=== PATIENT | female | born 1945 | race Caucasian/White ===

== ENCOUNTER 2017-07-31 16:16 | Emergency (ER) | payer OTHER ==
[~2017-07-31] VITALS: Ht 162.6 cm; Wt 78.6 kg
[~2017-07-31 16:16] MED LIST: CITA20TA4 PO; CLOP75 PO; Cyclobenzaprine Hcl PO; ECOT81TA2 PO; FERR1TAB20 PO; GLUCTAB PO; LORTA5 PO; METO50TA PO; NOVO7030P2 SQ; PERC5TAB12 PO; PROT40TA PO; ROBA750T3 PO; ROSU40 PO; THERM PO
[2017-07-31 16:23] VITALS: BP 217/90; PULSE 100; RESP 16; TEMP 97.8; O2SAT 96
[2017-07-31] MEDS ORDERED: cloNIDine HCL 0.2 MG TAB PO ONE (16:45)
--- NOTE | 2017-07-31 16:46 | PD ---
HPI Chief Complaint: Hypertension Time Seen by Provider: 16:36 Travel History International Travel<30 days: No Contact w/Intl Traveler<30days: No Traveled to known affect area: No History of Present Illness HPI The patient was seen and examined in the presence of the nurse. This patient complains of elevated blood pressures. She was at her primary physician's office and had high blood pressure and was sent here. She does not have any symptoms. She feels fine. She has no chest pain or headache or presyncopal symptoms. She took both of her blood pressure pills this morning. Current pressure is 193/82. Duration of hypertension is chronic. No alleviating factors. No exacerbating factors. She is compliant with her medication. Symptom severity is mild. PFSH Past Medical History Hx Anticoagulant Therapy: Yes (asa 81mg, plavix) Arthritis: No Asthma: No Autoimmune Disease: No Anxiety: No Depression: No Heart Rhythm Problems: No Cancer: No Cardiovascular Problems: Yes (htn on meds, triple bypass) High Cholesterol: No Chemotherapy: No Chest Pain: Yes Congestive Heart Failure: No COPD: Yes Cerebrovascular Accident: Yes (cva x 3) Diabetes: Yes (type 2) Diminished Hearing: No Endocrine: Yes GERD: No Genitourinary: Yes Hiatal Hernia: No Hypertension: Yes Immune Disorder: No Implanted Vascular Access Dvce: No Kidney Stones: No Musculoskeletal: No Neurologic: No Psychiatric: No Reproductive: No Respiratory: Yes (induce asthma ) Migraines: No Pneumonia: Yes Radiation Therapy: No Renal Failure: No Seizures: No Sickle Cell Disease: No Sleep Apnea: No Thyroid Disease: No Ulcer: No ?: Not Menopausal: Yes Past Surgical History Abdominal Surgery: Yes (Gall Bladder, ) AICD: No Appendectomy: Yes Arteriovenous Shunt: No Body Medical Devices: LAP BANDING Cardiac Surgery: Yes (CABG X 3) Cholecystectomy: Yes Ear Surgery: No Endocrine Surgery: No Eye Surgery: No Genitourinary Surgery: Yes (Renal Bypass not connected to DM) Gynecologic Surgery: No Insulin Pump: No Joint Replacement: No Neurologic Surgery: Yes Oral Surgery: No Pacemaker: No Thoracic Surgery: No Other Surgery: Yes (RENAL BYPASS) Social History Alcohol Use: Yes ("OCCASIONAL COCKTAIL") Tobacco Use: No (QUIT10/2013; USE E-CIG) Substance Use: No Allergies-Medications (Allergen,Severity, Reaction): Coded Allergies: atorvastatin (Verified Allergy, Unknown, 07/31/17) metformin (Verified Allergy, Unknown, 07/31/17) Reported Meds & Prescriptions Reported Meds & Active Scripts Active Reported Fish Oil ([place]-3 Fatty Acids) 340 Mg-1,000 Mg Cap 1,000 PO DAILY Lexapro (Escitalopram Oxalate) 20 Mg Tab 20 Mg PO DAILY Citalopram (Citalopram Hydrobromide) 20 Mg Tab 20 Mg PO DAILY Acarbose 100 Mg Tab 100 Mg PO DAILY Take with first bite of meal. Lantus Solostar Pen Inj (Insulin Glargine) 300 Unit/3 Ml Pen 100 Units SQ DAILY Vitamin D (Cholecalciferol) 2,000 Unit Cap 22 Cap PO DAILY Vitamin B-12 (Cyanocobalamin) 1,000 Mcg Subl 1,000 Mcg SL DAILY Aspirin 81 Mg Chew 81 Mg CHEW DAILY Invokamet (Canagliflozin-Metformin) 150-1,000 Mg Tab 1 Tab PO DAILY Take with meals. Avoid ethanol. Synthroid (Levothyroxine Sodium) 25 Mcg Tab 25 Mcg PO DAILY Amitriptyline (Amitriptyline HCl) 50 Mg Tab 50 Mg PO HS Metoprolol Tartrate 50 Mg Tab 50 Mg PO BID Plavix (Clopidogrel Bisulfate) 75 Mg Tab 75 Mg PO DAILY Cozaar (Losartan Potassium) 100 Mg Tab 100 Mg PO DAILY Magnesium Oxide 400 Mg Tab 400 Mg PO DAILY Review of Systems General / Constitutional: No: Fever Eyes: No: Visual changes HENT: No: Headaches Cardiovascular: No: Chest Pain or Discomfort Respiratory: No: Shortness of Breath Gastrointestinal: No: Abdominal Pain Genitourinary: No: Dysuria Musculoskeletal: No: Pain Skin: No Rash Neurologic: No: Weakness Psychiatric: No: Depression Endocrine: No: Polydipsia Hematologic/Lymphatic: No: Easy Bruising Physical Exam Narrative GENERAL: Well-nourished, well-developed patient in no apparent distress. SKIN: Focused skin assessment reveals no rash and nodules. Skin is Warm and dry. HEAD: Atraumatic. Normocephalic. EYES: Pupils equal and round. No scleral icterus. No injection or drainage. ENT: No nasal bleeding or discharge. Mucous membranes pink and moist. NECK: Trachea midline. No JVD. CARDIOVASCULAR: Regular rate and rhythm. No murmur appreciated. RESPIRATORY: No accessory muscle use. Clear to auscultation. Breath sounds equal bilaterally. GASTROINTESTINAL: Abdomen soft, non-tender, nondistended. Hepatic and splenic margins not palpable. MUSCULOSKELETAL: No obvious deformities. No clubbing. No cyanosis. No edema. NEUROLOGICAL: Awake and alert. No obvious cranial nerve deficits. Motor grossly within normal limits. Normal speech. PSYCHIATRIC: Appropriate mood and affect; insight and judgment normal. Data Data Last Documented VS Vital Signs Date Time Temp Pulse Resp B/P (MAP) Pulse Ox O2 Delivery O2 Flow Rate FiO2 07/31/17 17:27 148/63 (91) 07/31/17 16:23 97.8 100 16 96 Orders Orders Clonidine (Catapres) (07/31/17 16:45) [facility] Medical Decision Making Medical Screen Exam Complete: Yes Emergency Medical Condition: Yes Medical Record Reviewed: Yes Differential Diagnosis Accelerated hypertension, hypertensive urgency, essential hypertension Narrative Course I have reviewed the patient's electronic medical record. I reviewed the paperwork she brought from her physician visit today patient's blood pressure is 193/82. I gave her dose of clonidine. She is neurologically intact and asymptomatic. I will reassess in 45 minutes Blood pressure is now normal Diagnosis Primary Impression: Accelerated hypertension Additional Instructions: The patient was advised to follow up with their physician and return if they worsen. Check and record blood pressure daily Med/Other Pt SpecificInfo: Other Disposition: 01 DISCHARGE HOME Condition: Stable Ulices Soni MD Jul 31, 2017 16:46
[2017-07-31] MEDS ORDERED: ASPI-516 CHEW (17:12)
[2017-07-31] MEDS ORDERED: SYNT25TA PO (17:12)
[2017-07-31] MEDS ORDERED: MAGN400T2 PO (17:12)
[2017-07-31] MEDS ORDERED: AMIT50TA3 PO (17:12)
[2017-07-31] MEDS ORDERED: LANTINJ SQ (17:12)
[2017-07-31] MEDS ORDERED: CITA20TA4 PO (17:12)
[2017-07-31] MEDS ORDERED: METO50TA PO (17:12)
[2017-07-31] MEDS ORDERED: COZA100T PO (17:12)
[2017-07-31] MEDS ORDERED: ACAR100T PO (17:12)
[2017-07-31] MEDS ORDERED: FISH1000 PO (17:12)
[2017-07-31] MEDS ORDERED: VITA100021 SL (17:12)
[2017-07-31] MEDS ORDERED: PLAV75TA29 PO (17:12)
[2017-07-31] MEDS ORDERED: LEXA20TA PO (17:12)
[2017-07-31] MEDS ORDERED: VITA200013 PO (17:12)
[2017-07-31] MEDS ORDERED: CANA1TAB4 PO (17:12)
[2017-07-31 17:27] VITALS: BP 148/63
== END 2017-07-31 18:13 | disposition home or self-care (01) ==
LOC: PHED 16:16
DX: I10 Essential (primary) hypertension (principal); J44.9 Chronic obstructive pulmonary disease, unspecified; E11.9 Type 2 diabetes mellitus without complications; Z95.1 Presence of aortocoronary bypass graft; Z79.82 Long term (current) use of aspirin; Z79.01 Long term (current) use of anticoagulants; Z86.73 Personal history of transient ischemic attack (TIA), and cerebral infarction without residual deficits; Z79.84 Long term (current) use of oral hypoglycemic drugs
CPT/HCPCS: 99283

== ENCOUNTER 2017-08-12 18:18 | Observation (INO) | payer OTHER ==
[~2017-08-12] VITALS: Ht 162.6 cm; Wt 76.3 kg
[~2017-08-12 18:18] MED LIST changes: +ACAR100T PO; +AMIT50TA3 PO; +ASPI-516 CHEW; +CANA1TAB4 PO; -CLOP75 PO; +COZA100T PO; -Cyclobenzaprine Hcl PO; -ECOT81TA2 PO; -FERR1TAB20 PO; +FISH1000 PO; -GLUCTAB PO; +LANTINJ SQ; +LEXA20TA PO; -LORTA5 PO; +MAGN400T2 PO; -NOVO7030P2 SQ; -PERC5TAB12 PO; +PLAV75TA29 PO; -PROT40TA PO; -ROBA750T3 PO; -ROSU40 PO; +SYNT25TA PO; -THERM PO; +VITA100021 SL; +VITA200013 PO
[2017-08-12 18:28] VITALS: BP 136/67; PULSE 64; RESP 16; TEMP 98.4; O2SAT 98
[2017-08-12] MEDS ORDERED: SODIUM CHLORIDE 0.9% FLUSH 10 ML FLUSH IVF PRN (18:30)
--- NOTE | 2017-08-12 18:33 | PD ---
HPI Chief Complaint: Neuro Symptoms/ Deficits Time Seen by Provider: 18:23 Travel History International Travel<30 days: No Contact w/Intl Traveler<30days: No History of Present Illness HPI 72-year-old female arrives to the ER by private vehicle. The provides most of the history. He reports in the past day or 2 she has been unsteady on her feet. She has been forgetful. Evidently she was lost in the bathroom one night. The patient has a history of TIA. The reports the patient is very forgetful. For example while talking the patient will forget the subject matter and then remembered again 2 minutes later. Patient has had occasional falls lately and one happened she is unable to stand up on her own. In the ER she denies pain. She has no nausea or vomiting. The notes the patient has had episodes of hypertension values of 200 systolic followed by resumed normal BP. Patient reports up until a couple days ago having episodes of total body pain again with none today. PFSH Past Medical History Hx Anticoagulant Therapy: Yes (asa 81mg, plavix) Arthritis: No Asthma: No Autoimmune Disease: No Anxiety: No Depression: No Heart Rhythm Problems: No Cancer: No Cardiovascular Problems: Yes (htn on meds, triple bypass) High Cholesterol: No Chemotherapy: No Chest Pain: Yes Congestive Heart Failure: No COPD: Yes Cerebrovascular Accident: Yes (cva x 3) Diabetes: Yes (type 2) Diminished Hearing: No Endocrine: Yes GERD: No Genitourinary: Yes Hiatal Hernia: No Hypertension: Yes Immune Disorder: No Implanted Vascular Access Dvce: No Kidney Stones: No Musculoskeletal: No Neurologic: No Psychiatric: No Reproductive: No Respiratory: Yes (induce asthma ) Migraines: No Pneumonia: Yes Radiation Therapy: No Renal Failure: No Seizures: No Sickle Cell Disease: No Sleep Apnea: No Thyroid Disease: No Ulcer: No Menopausal: Yes Past Surgical History Abdominal Surgery: Yes (Gall Bladder, ) AICD: No Appendectomy: Yes Arteriovenous Shunt: No Body Medical Devices: LAP BANDING Cardiac Surgery: Yes (CABG X 3) Cholecystectomy: Yes Ear Surgery: No Endocrine Surgery: No Eye Surgery: No Genitourinary Surgery: Yes (Renal Bypass not connected to DM) Gynecologic Surgery: No Insulin Pump: No Joint Replacement: No Neurologic Surgery: Yes Oral Surgery: No Pacemaker: No Thoracic Surgery: No Other Surgery: Yes (RENAL BYPASS) Social History Alcohol Use: Yes ("OCCASIONAL COCKTAIL") Tobacco Use: No (QUIT10/2013; USE E-CIG) Substance Use: No Allergies-Medications (Allergen,Severity, Reaction): Coded Allergies: atorvastatin (Verified Allergy, Unknown, 07/31/17) metformin (Verified Allergy, Unknown, 07/31/17) Reported Meds & Prescriptions Reported Meds & Active Scripts Active Reported Metformin (Metformin HCl) 500 Mg Tab 500 Mg PO BIDPC Fish Oil ([place]-3 Fatty Acids) 340 Mg-1,000 Mg Cap 1,000 PO DAILY Lexapro (Escitalopram Oxalate) 20 Mg Tab 20 Mg PO DAILY Citalopram (Citalopram Hydrobromide) 20 Mg Tab 20 Mg PO DAILY Lantus Solostar Pen Inj (Insulin Glargine) 300 Unit/3 Ml Pen 100 Units SQ DAILY Vitamin D (Cholecalciferol) 2,000 Unit Cap 22 Cap PO DAILY Vitamin B-12 (Cyanocobalamin) 1,000 Mcg Subl 1,000 Mcg SL DAILY Aspirin 81 Mg Chew 81 Mg CHEW DAILY Invokamet (Canagliflozin-Metformin) 150-1,000 Mg Tab 1 Tab PO DAILY Take with meals. Avoid ethanol. Synthroid (Levothyroxine Sodium) 25 Mcg Tab 25 Mcg PO DAILY Amitriptyline (Amitriptyline HCl) 50 Mg Tab 50 Mg PO HS Metoprolol Tartrate 50 Mg Tab 50 Mg PO BID Plavix (Clopidogrel Bisulfate) 75 Mg Tab 75 Mg PO DAILY Cozaar (Losartan Potassium) 100 Mg Tab 100 Mg PO DAILY Magnesium Oxide 400 Mg Tab 400 Mg PO DAILY Review of Systems Except as stated in HPI: all other systems reviewed are Neg General / Constitutional: No: Fever Physical Exam Narrative GENERAL: 72-year-old female pleasant well-nourished well-developed mild distress and mildly anxious SKIN: Warm and dry. HEAD: Atraumatic. Normocephalic. EYES: Pupils equal and round. No scleral icterus. No injection or drainage. ENT: No nasal bleeding or discharge. Mucous membranes pink and moist. NECK: Trachea midline. No JVD. CARDIOVASCULAR: Regular rate and rhythm. RESPIRATORY: No accessory muscle use. Clear to auscultation. Breath sounds equal bilaterally. GASTROINTESTINAL: Abdomen soft, non-tender, nondistended. Hepatic and splenic margins not palpable. MUSCULOSKELETAL: Extremities without clubbing, cyanosis, or edema. No obvious deformities. NEUROLOGICAL: The patient is able to speak in sentences. 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 Patient moves all extremities. PSYCHIATRIC: Appropriate mood and affect; insight and judgment normal. Data Data Last Documented VS Vital Signs Date Time Temp Pulse Resp B/P (MAP) Pulse Ox O2 Delivery O2 Flow Rate FiO2 08/12/17 19:38 18 08/12/17 18:53 98 Room Air 08/12/17 18:28 98.4 64 136/67 (90) Orders Orders Electrocardiogram (08/12/17 18:23) Prothrombin Time / Inr (Pt) (08/12/17 18:23) Act Partial Throm Time (Ptt) (08/12/17 18:23) Complete Blood Count With Diff (08/12/17 18:23) Comprehensive Metabolic Panel (08/12/17 18:23) Drug Screen, Random Urine (08/12/17 18:23) Ua Includes Microscopic (08/12/17 18:23) Ct Brain W/O Iv Contrast(Rout) (08/12/17 18:23) Ecg Monitoring (08/12/17 18:23) Iv Access Insert/Monitor (08/12/17 18:23) Oximetry (08/12/17 18:23) Blood Glucose (08/12/17 18:23) Sodium Chloride 0.9% Flush (Ns Flush) (08/12/17 18:30) Cath For Specimen (08/12/17 19:34) Admit Order (Ed Use Only) (08/12/17 19:49) Bedside Glucose FREDERICK.CSUGAR (08/12/17 19:47) Blood Glucose Goal (Criteria) (08/12/17 19:47) Hypoglycemia 70 Mg/Dl Or < (08/12/17 19:47) Notify Dr: Other (08/12/17 19:47) Dextrose 50% In Jacquie (Vial) Inj (D50w (Vi (08/12/17 20:00) Glucagon Inj (Glucagon Inj) (08/12/17 20:00) Insulin Aspart Supplemtl Scale (Novolog (08/12/17 21:00) Place In Observation (08/12/17 ) Vital Signs (Adult) Q4H (08/12/17 19:47) Neuro Checks Q4H (08/12/17 19:47) Activity Oob With Assistance (08/12/17 19:47) Outside Sales / Telemetry .CONTINUOUS (08/12/17 19:47) Intake + Output FREDERICK.QSHIFT (08/12/17 19:47) Diet 1800 Ada Cons Carb (08/13/17 Breakfast) Sodium Chlor 0.9% 1000 Ml Inj (Ns 1000 M (08/12/17 20:00) Sodium Chloride 0.9% Flush (Ns Flush) (08/12/17 20:00) Sodium Chloride 0.9% Flush (Ns Flush) (08/12/17 21:00) Ondansetron Inj (Zofran Inj) (08/12/17 20:00) Comprehensive Metabolic Panel (08/13/17 06:00) Complete Blood Count With Diff (08/13/17 06:00) Pt Request For Service (08/12/17 19:47) Case Management Consult (08/12/17 19:47) Scd Bilateral/Knee High FREDERICK.BID (08/12/17 19:47) Dalton Bilateral/Knee High FREDERICK.QSHIFT (08/12/17 19:50) Acetaminophen (Tylenol) (08/12/17 20:00) Acetamin-Hydrocod 325-5 Mg (Trade 5-325 (08/12/17 20:00) Acetamin-Hydrocod 325-10 Mg (Trade 10-32 (08/12/17 20:00) Docusate Sodium-Senna ([place]-Colace) (08/12/17 21:00) Magnesium Hydroxide Liq (Milk Of Magnesi (08/12/17 20:00) Sennosides (Senokot) (08/12/17 20:00) Bisacodyl Supp (Dulcolax Supp) (08/12/17 20:00) Lactulose Liq (Lactulose Liq) (08/12/17 20:00) Mra Brain W/O Contrast (Cow) (08/12/17 ) Consult Neurology (08/12/17 ) Vitamin B12 (08/13/17 06:00) Folate, Serum (08/13/17 06:00) Hemoglobin (Hgb) A1c (08/13/17 06:00) Amitriptyline (Elavil) (08/12/17 21:00) Aspirin Chew (Aspirin Chew) (08/13/17 09:00) Clopidogrel (Plavix) (08/13/17 09:00) Escitalopram (Lexapro) (08/13/17 09:00) Levothyroxine (Synthroid) (08/13/17 06:00) Mra Carotids W Contrast (08/12/17 ) Labs Laboratory Tests Test 08/12/17 18:30 08/12/17 19:30 White Blood Count 10.6 TH/MM3 Red Blood Count 4.92 MIL/MM3 Hemoglobin 14.2 GM/DL Hematocrit 41.2 % Mean Corpuscular Volume 83.7 FL Mean Corpuscular Hemoglobin 28.8 PG Mean Corpuscular Hemoglobin Concent 34.5 % Red Cell Distribution Width 12.9 % Platelet Count 271 TH/MM3 Mean Platelet Volume 8.4 FL Neutrophils (%) (Auto) 56.6 % Lymphocytes (%) (Auto) 29.0 % Monocytes (%) (Auto) 6.4 % Eosinophils (%) (Auto) 5.1 % Basophils (%) (Auto) 2.9 % Neutrophils # (Auto) 6.0 TH/MM3 Lymphocytes # (Auto) 3.1 TH/MM3 Monocytes # (Auto) 0.7 TH/MM3 Eosinophils # (Auto) 0.5 TH/MM3 Basophils # (Auto) 0.3 TH/MM3 CBC Comment DIFF FINAL Differential Comment Prothrombin Time 10.3 SEC Prothromb Time International Ratio 1.0 RATIO Activated Partial Thromboplast Time 24.3 SEC Blood Urea Nitrogen 15 MG/DL Creatinine 0.99 MG/DL Random Glucose 153 MG/DL Total Protein 6.7 GM/DL Albumin 3.4 GM/DL Calcium Level 9.0 MG/DL Alkaline Phosphatase 89 U/L Aspartate Amino Transf (AST/SGOT) 21 U/L Alanine Aminotransferase (ALT/SGPT) 27 U/L Total Bilirubin 0.3 MG/DL Sodium Level 138 MEQ/L Potassium Level 4.3 MEQ/L Chloride Level 103 MEQ/L Carbon Dioxide Level 27.5 MEQ/L Anion Gap 8 MEQ/L Estimat Glomerular Filtration Rate 55 ML/MIN Urine Color YELLOW Urine Turbidity CLEAR Urine pH 6.0 Urine Specific [place]pp[place] 1.015 Urine Protein NEG mg/dL Urine Glucose (UA) 1000 OR GREATER mg/dL Urine Ketones NEG mg/dL Urine Occult Blood NEG Urine Nitrite NEG Urine Bilirubin NEG Urine Urobilinogen 0.2 MG/DL Urine Leukocyte Esterase NEG Urine RBC 0-2 /hpf Urine WBC 0-2 /hpf Urine Squamous Epithelial Cells 0-5 /hpf Urine Bacteria NONE /hpf Urine Opiates Screen NEG Urine Barbiturates Screen NEG Urine Amphetamines Screen NEG Urine Benzodiazepines Screen NEG Urine Cocaine Screen NEG Urine Cannabinoids Screen NEG MDM Medical Decision Making Medical Screen Exam Complete: Yes Emergency Medical Condition: Yes Medical Record Reviewed: Yes Differential Diagnosis Stroke, CVA, hypoglycemia Narrative Course EKG shows a sinus rhythm with a rate of 64 normal axis and intervals no ischemic injury pattern Workup initiated for potential stroke or TIA. Discussed with the oncoming provider Dr. Junior who will follow work up, reassess and plan for admission. Diagnosis Primary Impression: Parish Velez MD Aug 12, 2017 18:33
[2017-08-12 18:53] VITALS: RESP 16; O2SAT 98
[2017-08-12 18:58] LABS: BASOPHIL # 0.3 TH/MM3 (0-0.2); BASOPHIL % 2.9 % (0.0-2.0); EOSINOPHIL # 0.5 TH/MM3 (0-0.4); EOSINOPHIL % 5.1 % (0.0-4.0); HEMATOCRIT 41.2 % (35.0-46.0); HEMOGLOBIN 14.2 GM/DL (11.6-15.3); LYMPHOCYTE # 3.1 TH/MM3 (1.0-4.8); MEAN CELL VOLUME 83.7 FL (80.0-100.0); MEAN CORPUSCULAR HEMOGLOBIN 28.8 PG (27.0-34.0); MEAN CORPUSCULAR HGB CONC 34.5 % (32.0-36.0); MEAN PLATELET VOLUME 8.4 FL (7.0-11.0); MONO % 6.4 % (0.0-8.0); MONOCYTE # 0.7 TH/MM3 (0-0.9); NEUT % 56.6 % (16.0-70.0); PLATELET COUNT 271 TH/MM3 (150-450); RED BLOOD COUNT 4.92 MIL/MM3 (4.00-5.30); RED CELL DISTRIBUTION WIDTH 12.9 % (11.6-17.2); WHITE BLOOD COUNT 10.6 TH/MM3 (4.0-11.0)
[2017-08-12] MEDS ORDERED: METF500T PO (19:04)
[2017-08-12 19:05] LABS: CHLORIDE 103 MEQ/L (98-107); SODIUM (NA) 138 MEQ/L (136-145)
--- NOTE | 2017-08-12 19:07 | RADRPT ---
EXAM DATE/TIME: 08/12/2017 18:50 [place] COMPARISON: CT BRAIN W/O CONTRAST, January 01, 2014, 20:53. INDICATIONS : Intermittent episodes of confusion and unsteady gait with difficulty speaking this past week. RADIATION DOSE: 60.15 CTDIvol (mGy) MEDICAL HISTORY : Cerebrovascular disease. Cardiovascular disease Hypertension.Diabetes. Anticoagulant therapy. SURGICAL HISTORY : CABG Appendectomy.Cholecystectomy.Renal bypass. ENCOUNTER: Initial ACUITY: 1 week PAIN SCALE: 0/10 LOCATION: cranial TECHNIQUE: Multiple contiguous axial images were obtained of the head. Using automated exposure control and adj ustment of the mA and/or kV according to patient size, radiation dose was kept as low as reasonably a chievable to obtain optimal diagnostic quality images. DICOM format image data is available electro nically for review and comparison. FINDINGS: CEREBRUM: Focal lacunar infarct in the right basal ganglia focal encephalomalacia in the posterior medial right parietal high convexities. The ventricles are normal for age. No evidence of midline shift, mass le vipul, hemorrhage or acute infarction. No extra-axial fluid collections are seen. POSTERIOR FOSSA: The cerebellum and brainstem are intact. The 4th ventricle is midline. The cerebellopontine angle i s unremarkable. EXTRACRANIAL: The visualized portion of the orbits is intact. SKULL: The calvaria is intact. No evidence of skull fracture. CONCLUSION: 1. Senescent changes with old right basal ganglia lacunar and focal right posterior parietal infarcts . 2. No acute intracranial abnormality. Rowdy Gonzalez MD on August 12, 2017 at 19:02 Board Certified Radiologist. This report was verified electronically.
[2017-08-12 19:09] LABS: ALBUMIN 3.4 GM/DL (3.4-5.0); BICARBONATE 27.5 MEQ/L (21.0-32.0); BLOOD UREA NITROGEN 15 MG/DL (7-18); GLUCOSE,RANDOM 153 MG/DL (74-106); PROTHROMBIN TIME - PATIENT 10.3 SEC (9.8-11.6)
[2017-08-12 19:12] LABS: ALT (GPT) 27 U/L (10-53); AST (GOT) 21 U/L (15-37); CREATININE 0.99 MG/DL (0.50-1.00); GLOMERULAR FILTRATION RATE 55 ML/MIN (>89)
[2017-08-12 19:14] LABS: TOTAL BILIRUBIN ADULT 0.3 MG/DL (0.2-1.0); TOTAL PROTEIN 6.7 GM/DL (6.4-8.2)
[2017-08-12 19:15] LABS: ALKALINE PHOSPHATASE 89 U/L (45-117)
[2017-08-12 19:35] LABS: BILIRUBIN, URINE NEG (NEG); BLOOD, URINE NEG (NEG); GLUCOSE,URINE 1000 OR GREATER mg/dL (NEG); KETONE, URINE NEG (NEG); NITRITE,URINE NEG (NEG); URINE COLOR YELLOW (YELLW/STRAW); URINE LEUKOCYTE ESTERASE NEG (NEG)
--- NOTE | 2017-08-12 19:46 | PD ---
Physical Exam Time Seen by Provider: 19:[address] Murry left this patient with me to make a disposition, likely admission. Data Data Last Documented VS Vital Signs Date Time Temp Pulse Resp B/P (MAP) Pulse Ox O2 Delivery O2 Flow Rate FiO2 08/12/17 19:38 18 08/12/17 18:53 98 Room Air 08/12/17 18:28 98.4 64 136/67 (90) Orders Orders Electrocardiogram (08/12/17 18:23) Prothrombin Time / Inr (Pt) (08/12/17 18:23) Act Partial Throm Time (Ptt) (08/12/17 18:23) Complete Blood Count With Diff (08/12/17 18:23) Comprehensive Metabolic Panel (08/12/17 18:23) Drug Screen, Random Urine (08/12/17 18:23) Ua Includes Microscopic (08/12/17 18:23) Ct Brain W/O Iv Contrast(Rout) (08/12/17 18:23) Ecg Monitoring (08/12/17 18:23) Iv Access Insert/Monitor (08/12/17 18:23) Oximetry (08/12/17 18:23) Blood Glucose (08/12/17 18:23) Sodium Chloride 0.9% Flush (Ns Flush) (08/12/17 18:30) Cath For Specimen (08/12/17 19:34) Labs Laboratory Tests Test 08/12/17 18:30 08/12/17 19:30 White Blood Count 10.6 TH/MM3 Red Blood Count 4.92 MIL/MM3 Hemoglobin 14.2 GM/DL Hematocrit 41.2 % Mean Corpuscular Volume 83.7 FL Mean Corpuscular Hemoglobin 28.8 PG Mean Corpuscular Hemoglobin Concent 34.5 % Red Cell Distribution Width 12.9 % Platelet Count 271 TH/MM3 Mean Platelet Volume 8.4 FL Neutrophils (%) (Auto) 56.6 % Lymphocytes (%) (Auto) 29.0 % Monocytes (%) (Auto) 6.4 % Eosinophils (%) (Auto) 5.1 % Basophils (%) (Auto) 2.9 % Neutrophils # (Auto) 6.0 TH/MM3 Lymphocytes # (Auto) 3.1 TH/MM3 Monocytes # (Auto) 0.7 TH/MM3 Eosinophils # (Auto) 0.5 TH/MM3 Basophils # (Auto) 0.3 TH/MM3 CBC Comment DIFF FINAL Differential Comment Prothrombin Time 10.3 SEC Prothromb Time International Ratio 1.0 RATIO Activated Partial Thromboplast Time 24.3 SEC Blood Urea Nitrogen 15 MG/DL Creatinine 0.99 MG/DL Random Glucose 153 MG/DL Total Protein 6.7 GM/DL Albumin 3.4 GM/DL Calcium Level 9.0 MG/DL Alkaline Phosphatase 89 U/L Aspartate Amino Transf (AST/SGOT) 21 U/L Alanine Aminotransferase (ALT/SGPT) 27 U/L Total Bilirubin 0.3 MG/DL Sodium Level 138 MEQ/L Potassium Level 4.3 MEQ/L Chloride Level 103 MEQ/L Carbon Dioxide Level 27.5 MEQ/L Anion Gap 8 MEQ/L Estimat Glomerular Filtration Rate 55 ML/MIN [facility] Medical Record Reviewed: Yes Supervised Visit with BABITA: No Interpretation(s) The CT brain shows senescent changes with old right basal ganglia lacunar and focal right parietal infarcts. No acute intracranial abnormality. The complete metabolic profile shows a GFR of 55, glucose 153 but is otherwise normal. The CBC is normal. The coagulation profile is normal. The EKG shows sinus rhythm with a ventricular rate of [address] elevation or depression. Narrative Course According to the daughter, who arrived after the , the patient's symptoms have been going on since the of this month. The symptoms include confusion, forgetfulness and inability to stand on her own. She requires assistance anytime she walks because she falls frequently. Diagnosis Primary Impression: Roman Cordoba MD Aug 12, 2017 19:46
[2017-08-12 19:48] LABS: RBC, URINE 0-2 /hpf (0-3); SQUAMOUS EPITHELIAL CELL URINE 0-5 /hpf (0-5); WBC, URINE 0-2 /hpf (0-5)
[2017-08-12 19:58] VITALS: BP 145/72; PULSE 67; RESP 18; O2SAT 97
[2017-08-12 20:00] VITALS: BP 138/67; PULSE 62; RESP 20; TEMP 97.8; O2SAT 93
[2017-08-12] MEDS ORDERED: SODIUM CHLORIDE 0.9% FLUSH 10 ML FLUSH IV FLUSH PRN (20:00)
[2017-08-12] MEDS ORDERED: DEXTROSE 50% IN WATER 50 ML VIAL(D50) IV PUSH PRN (20:00)
[2017-08-12] MEDS ORDERED: MAGNESIUM HYDROXIDE SUSP 30 ML CUP PO PRN (20:00)
[2017-08-12] MEDS ORDERED: GLUCAGON 1 MG/ML VIAL OTHER PRN (20:00)
[2017-08-12] MEDS ORDERED: LACTULOSE SYRUP 20 GM/30 ML CUP PO PRN (20:00)
[2017-08-12] MEDS ORDERED: ONDANSETRON HCL 4 MG/2 ML VIAL IVP PRN (20:00)
[2017-08-12] MEDS ORDERED: SENNOSIDES 8.6 MG TAB PO PRN (20:00)
[2017-08-12] MEDS ORDERED: BISACODYL 10 MG SUPP RECTAL PRN (20:00)
[2017-08-12] MEDS ORDERED: ACETAMINOPHEN/HYDROcodone 325 MG/5 MG TAB PO PRN (20:00)
[2017-08-12] MEDS: SODIUM CHLOR 0.9% 1000 ML INJ 1,000 ML IV SCH (20:00)
[2017-08-12] MEDS ORDERED: ACETAMINOPHEN/HYDROcodone 325 MG/10 MG TAB PO PRN (20:00)
[2017-08-12] MEDS ORDERED: ACETAMINOPHEN 325 MG TAB PO PRN (20:00)
[2017-08-12] MEDS ORDERED: AMITRIPTYLINE HCL 50 MG TAB PO SCH (21:00)
[2017-08-12] MEDS: INSULIN ASPART SUPPLEMENTAL SCALE SQ SCH (21:00)
[2017-08-12 21:45] VITALS: PULSE 64
[2017-08-12] MEDS: SODIUM CHLORIDE 0.9% FLUSH 10 ML FLUSH IV FLUSH SCH (21:50)
[2017-08-12] MEDS: DOCUSATE SODIUM 50 MG/SENNA 8.6 MG TAB PO SCH (21:50)
[2017-08-13 04:12] VITALS: BP 146/69; PULSE 69; RESP 22; TEMP 96.8; O2SAT 94
[2017-08-13 06:03] LABS: AUTOMATED NEUTROPHIL # 4.8 TH/MM3 (1.8-7.7); BASOPHIL # 0.1 TH/MM3 (0-0.2); BASOPHIL % 1.5 % (0.0-2.0); EOSINOPHIL # 0.5 TH/MM3 (0-0.4); EOSINOPHIL % 5.8 % (0.0-4.0); HEMATOCRIT 39.1 % (35.0-46.0); HEMOGLOBIN 13.3 GM/DL (11.6-15.3); LYMPH % 32.1 % (9.0-44.0); LYMPHOCYTE # 2.8 TH/MM3 (1.0-4.8); MEAN CELL VOLUME 84.6 FL (80.0-100.0); MEAN CORPUSCULAR HEMOGLOBIN 28.8 PG (27.0-34.0); MEAN CORPUSCULAR HGB CONC 34.1 % (32.0-36.0); MEAN PLATELET VOLUME 8.7 FL (7.0-11.0); MONO % 5.6 % (0.0-8.0); MONOCYTE # 0.5 TH/MM3 (0-0.9); PLATELET COUNT 189 TH/MM3 (150-450); RED BLOOD COUNT 4.62 MIL/MM3 (4.00-5.30); RED CELL DISTRIBUTION WIDTH 11.9 % (11.6-17.2); WHITE BLOOD COUNT 8.7 TH/MM3 (4.0-11.0)
[2017-08-13 06:14] LABS: CHLORIDE 107 MEQ/L (98-107); SODIUM (NA) 142 MEQ/L (136-145)
[2017-08-13 06:19] LABS: BLOOD UREA NITROGEN 16 MG/DL (7-18); GLUCOSE,RANDOM 154 MG/DL (74-106)
[2017-08-13 06:20] LABS: CALCIUM 8.9 MG/DL (8.5-10.1)
[2017-08-13 06:21] LABS: BICARBONATE 27.9 MEQ/L (21.0-32.0)
[2017-08-13 06:22] LABS: ALT (GPT) 22 U/L (10-53); AST (GOT) 13 U/L (15-37)
[2017-08-13 06:23] LABS: CREATININE 0.86 MG/DL (0.50-1.00); GLOMERULAR FILTRATION RATE 65 ML/MIN (>89)
[2017-08-13 06:24] LABS: TOTAL BILIRUBIN ADULT 0.2 MG/DL (0.2-1.0); TOTAL PROTEIN 6.1 GM/DL (6.4-8.2)
[2017-08-13 06:27] LABS: ALKALINE PHOSPHATASE 84 U/L (45-117)
[2017-08-13] MEDS: LEVOTHYROXINE SODIUM 25 MCG TAB PO SCH (06:40)
[2017-08-13] MEDS: SODIUM CHLOR 0.9% 1000 ML INJ 1,000 ML IV SCH ×2 (06:41→18:54)
[2017-08-13 07:50] VITALS: BP 227/89; PULSE 69; RESP 20; TEMP 98.4; O2SAT 96
[2017-08-13] MEDS: INSULIN ASPART SUPPLEMENTAL SCALE SQ SCH ×4 (08:00→21:00)
[2017-08-13] MEDS: SODIUM CHLORIDE 0.9% FLUSH 10 ML FLUSH IV FLUSH SCH ×2 (08:32→21:25)
[2017-08-13] MEDS: CLOPIDOGREL 75 MG TAB PO SCH (08:32)
[2017-08-13] MEDS: ASPIRIN 81 MG CHEW TAB CHEW SCH (08:32)
[2017-08-13] MEDS: DOCUSATE SODIUM 50 MG/SENNA 8.6 MG TAB PO SCH ×2 (08:32→21:25)
[2017-08-13] MEDS: LOSARTAN 50 MG TAB PO SCH (08:36)
[2017-08-13] MEDS: ESCITALOPRAM OXALATE 20 MG TAB PO SCH (08:36)
[2017-08-13] MEDS: METOPROLOL TARTRATE 50 MG TAB PO SCH ×2 (08:36→21:25)
[2017-08-13] MEDS ORDERED: ENALAPRILAT 1.25 MG/ML VIAL IV PUSH PRN (09:15)
[2017-08-13] MEDS ORDERED: cloNIDine HCL 0.1 MG TAB PO PRN (09:15)
--- NOTE | 2017-08-13 09:39 | HHI.HP ---
HPI Service [facility] Primary Care Physician Abraham Banks MD Admission Diagnosis Ischemic CVA, falling Diagnoses: Chief Complaint: Neuro deficits Travel History International Travel<30 Days: No Contact w/Intl Traveler <30 Da: No Traveled to Known Affected Are: No History of Present Illness This is a 72-year-old female who was brought in by her because of neuro deficits. For the past 2 days patient has been unsteady on her feet and forgetful. She was lost in her own bathroom one night stating she cannot find her way out. It was also dark. Patient has history of TIA and CVA. Patient seen in her room this morning with RN. is not available. She states she just wants to sleep. She is alert and oriented. She has good short term memory recall. States that for the past week she has been weak, unsteady on her feet and forgetful. She had multiple falls with apparent injuries no symptoms prior to the fall. She was also having generalized pain feeling like she has fibromyalgia. Since yesterday her pain has improved. She has chronic neuropathy involving her bilateral lower extremities. She also has pain in the right fifth toe after stubbing it against the chair. Patient denies any recent medication adjustment except when she was given clonidine for uncontrolled hypertension when she was in the ED 2 weeks ago. She also reports that her primary care physician gave her as needed blood pressure medication which she cannot recall. Denies fever, chills, dizziness, syncope, neck pain, numbness, focal weakness, chest pain, shortness of breath, abdominal pain, UTI symptoms, diarrhea and constipation. She reports of urinary incontinence. All other systems reviewed negative Review of Systems Except as stated in HPI: all other systems reviewed are Neg Past Family Social History Past Medical History As previously mentioned, coronary artery disease status post [place], triple bypass, asthma and diabetes mellitus Past Surgical History As previously mentioned. Gallbladder surgery, appendectomy, lap banding, renal bypass Reported Medications Reported Meds & Active Scripts Active Reported Metformin (Metformin HCl) 500 Mg Tab 500 Mg PO BIDPC Fish Oil ([place]-3 Fatty Acids) 340 Mg-1,000 Mg Cap 1,000 PO DAILY Lexapro (Escitalopram Oxalate) 20 Mg Tab 20 Mg PO DAILY Citalopram (Citalopram Hydrobromide) 20 Mg Tab 20 Mg PO DAILY Lantus Solostar Pen Inj (Insulin Glargine) 300 Unit/3 Ml Pen 100 Units SQ DAILY Vitamin D (Cholecalciferol) 2,000 Unit Cap 22 Cap PO DAILY Vitamin B-12 (Cyanocobalamin) 1,000 Mcg Subl 1,000 Mcg SL DAILY Aspirin 81 Mg Chew 81 Mg CHEW DAILY Invokamet (Canagliflozin-Metformin) 150-1,000 Mg Tab 1 Tab PO DAILY Take with meals. Avoid ethanol. Synthroid (Levothyroxine Sodium) 25 Mcg Tab 25 Mcg PO DAILY Amitriptyline (Amitriptyline HCl) 50 Mg Tab 50 Mg PO HS Metoprolol Tartrate 50 Mg Tab 50 Mg PO BID Plavix (Clopidogrel Bisulfate) 75 Mg Tab 75 Mg PO DAILY Cozaar (Losartan Potassium) 100 Mg Tab 100 Mg PO DAILY Magnesium Oxide 400 Mg Tab 400 Mg PO DAILY Allergies: Coded Allergies: atorvastatin (Verified Allergy, Unknown, 07/31/17) metformin (Verified Allergy, Unknown, 07/31/17) Family History CVA Social History Occasional alcohol use. Quit tobacco in 2013 Physical Exam Vital Signs Vital Signs Date Time Temp Pulse Resp B/P (MAP) Pulse Ox O2 Delivery O2 Flow Rate FiO2 08/13/17 04:12 96.8 69 22 146/69 (94) 94 08/12/17 21:45 64 08/12/17 21:20 08/12/17 20:00 97.8 62 20 138/67 (90) 93 08/12/17 19:58 67 18 145/72 (96) 97 Room Air 08/12/17 19:38 18 08/12/17 18:53 16 98 Room Air 08/12/17 18:28 98.4 64 16 136/67 (90) 98 Physical Exam GENERAL: This is obese, well-developed patient, in no apparent distress. SKIN: No rashes, ecchymoses or lesions. Cool and dry. HEAD: Atraumatic. Normocephalic. No temporal or scalp tenderness. EYES: Pupils equal round and reactive. Extraocular motions intact. No scleral icterus. No injection or drainage. ENT: Nose without bleeding, purulent drainage or septal hematoma. Throat without erythema, tonsillar hypertrophy or exudate. Uvula midline. Airway patent. NECK: Trachea midline. No JVD or lymphadenopathy. Supple, nontender, no meningeal signs. CARDIOVASCULAR: Regular rate and rhythm without murmurs, gallops, or rubs. RESPIRATORY: Clear to auscultation. Breath sounds equal bilaterally. No wheezes , rales, or rhonchi. GASTROINTESTINAL: Abdomen soft, non-tender, nondistended. No guarding. MUSCULOSKELETAL: Extremities without clubbing, cyanosis, or edema. Tender right toe no deformity, swelling or redness noted. No calf tenderness. Negative Homans sign bilaterally. NEUROLOGICAL: Awake and alert. Chronic right facial droop from previous CVA. Motor and sensory grossly within normal limits. Five out of 5 muscle strength in all muscle groups. Normal speech. She has unsteady gait Laboratory Laboratory Tests Test 08/12/17 18:30 08/12/17 19:30 08/13/17 05:00 White Blood Count 10.6 8.7 Red Blood Count 4.92 4.62 Hemoglobin 14.2 13.3 Hematocrit 41.2 39.1 Mean Corpuscular Volume 83.7 84.6 Mean Corpuscular Hemoglobin 28.8 28.8 Mean Corpuscular Hemoglobin Concent 34.5 34.1 Red Cell Distribution Width 12.9 11.9 Platelet Count 271 189 Mean Platelet Volume 8.4 8.7 Neutrophils (%) (Auto) 56.6 55.0 Lymphocytes (%) (Auto) 29.0 32.1 Monocytes (%) (Auto) 6.4 5.6 Eosinophils (%) (Auto) 5.1 5.8 Basophils (%) (Auto) 2.9 1.5 Neutrophils # (Auto) 6.0 4.8 Lymphocytes # (Auto) 3.1 2.8 Monocytes # (Auto) 0.7 0.5 Eosinophils # (Auto) 0.5 0.5 Basophils # (Auto) 0.3 0.1 CBC Comment DIFF FINAL DIFF FINAL Differential Comment Prothrombin Time 10.3 Prothromb Time International Ratio 1.0 Activated Partial Thromboplast Time 24.3 Blood Urea Nitrogen 15 16 Creatinine 0.99 0.86 Random Glucose 153 154 Total Protein 6.7 6.1 Albumin 3.4 3.0 Calcium Level 9.0 8.9 Alkaline Phosphatase 89 84 Aspartate Amino Transf (AST/SGOT) 21 13 Alanine Aminotransferase (ALT/SGPT) 27 22 Total Bilirubin 0.3 0.2 Sodium Level 138 142 Potassium Level 4.3 3.8 Chloride Level 103 107 Carbon Dioxide Level 27.5 27.9 Anion Gap 8 7 Estimat Glomerular Filtration Rate 55 65 Urine Color YELLOW Urine Turbidity CLEAR Urine pH 6.0 Urine Specific [place] 1.015 Urine Protein NEG Urine Glucose (UA) 1000 OR GREATER Urine Ketones NEG Urine Occult Blood NEG Urine Nitrite NEG Urine Bilirubin NEG Urine Urobilinogen 0.2 Urine Leukocyte Esterase NEG Urine RBC 0-2 Urine WBC 0-2 Urine Squamous Epithelial Cells 0-5 Urine Bacteria NONE Urine Opiates Screen NEG Urine Barbiturates Screen NEG Urine Amphetamines Screen NEG Urine Benzodiazepines Screen NEG Urine Cocaine Screen NEG Urine Cannabinoids Screen NEG Thyroid Stimulating Hormone 3rd Gen 0.661 Result Diagram: 08/13/17 0500 08/13/17 0500 Imaging Last Impressions Head CT 08/12/17 1823 Signed Impressions: Service Date/Time: Saturday, August 12, 2017 18:50 - CONCLUSION: 1. Senescent changes with old right basal ganglia lacunar and focal right posterior parietal infarcts. 2. No acute intracranial abnormality. MD Batool Hernandez VTE Risk Assessment Caprini VTE Risk Assessment: Mod/High Risk (score >= 2) Caprini Risk Assessment Model Point Value = 1 Point Value = 2 Point Value = 3 Point Value = 5 Age 41-60 Minor surgery BMI > 25 kg/m2 Swollen legs Varicose veins or History of unexplained or recurrent spontaneous Oral contraceptives or hormone replacement Sepsis (< 1 month) Serious lung disease, including pneumonia (< 1 month) Abnormal pulmonary function Acute myocardial infarction Congestive heart failure (< 1 month) History of inflammatory bowel disease Medical patient at bed rest Age 61-74 Arthroscopic surgery Major open surgery (> 45 min) Laparoscopic surgery (> 45 min) Malignancy Confined to bed (> 72 hours) Immobilizing plaster cast Central venous access Age >= 75 History of VTE Family history of VTE Factor V Leiden Prothrombin [id number] Lupus anticoagulant Anticardiolipin antibodies Elevated serum homocysteine Heparin-induced thrombocytopenia Other congenital or acquired thrombophilia Stroke (< 1 month) Elective arthroplasty Hip, pelvis, or leg fracture Acute spinal cord injury (< 1 month) Prophylaxis Regimen Total Risk Factor Score Risk Level Prophylaxis Regimen 0-1 Low Early ambulation 2 Moderate Order ONE of the following: *Sequential Compression Device (SCD) *Heparin 5000 units SQ BID 3-4 Higher Order ONE of the following medications: *Heparin 5000 units SQ TID *Enoxaparin/Lovenox 40 mg SQ daily (WT < 150 kg, CrCl > 30 mL/min) *Enoxaparin/Lovenox 30 mg SQ daily (WT < 150 kg, CrCl > 10-29 mL/min) *Enoxaparin/Lovenox 30 mg SQ BID (WT < 150 kg, CrCl > 30 mL/min) AND/OR *Sequential Compression Device (SCD) 5 or more Highest Order ONE of the following medications: *Heparin 5000 units SQ TID (Preferred with Epidurals) *Enoxaparin/Lovenox 40 mg SQ daily (WT < 150 kg, CrCl > 30 mL/min) *Enoxaparin/Lovenox 30 mg SQ daily (WT < 150 kg, CrCl > 10-29 mL/min) *Enoxaparin/Lovenox 30 mg SQ BID (WT < 150 kg, CrCl > 30 mL/min) AND *Sequential Compression Device (SCD) Assessment and Plan Problem List: (1) Weakness ICD Code: R53.1 - Weakness Status: Acute Assessment and Plan This is a 72-year-old female who presented to the emergency department with generalized weakness associated with forgetfulness, unsteady gait and multiple falls. She also has urinary incontinence. Head CT without acute findings. Patient with history of TIA and CVA. DDx new CVA vs TIA possible NPH. She also has uncontrolled hypertension which could be contributing to her symptoms. Agree with MRI of the brain, C-spine and carotid artery. EEG will also be ordered. Neurology has been consulted. PT evaluation. Fall precautions. Continue antiplatelets with aspirin and Plavix. Restart home BP medications ( losartan and metoprolol) with hold parameters. Will hold BP meds if she is orthostatic. As needed IV Vasotec and clonidine. Check TSH Right 5th toe contusion. Ice. Pain management Multiple medical conditions of coronary artery disease status post FL, triple bypass, asthma and diabetes mellitus. Obtain EKG. Monitor fingersticks with sliding scale coverage hold metformin and Lantus for now. DVT prophylaxis with SCD and early ambulation. Pharmacological prophylaxis MRI and neuro eval may need LP Discussed Condition With pt Edgar Camacho MD Aug 13, 2017 09:39
[2017-08-13 09:54] LABS: FOLATE GREATER THAN 20.0 NG/ML (3.1-17.5)
[2017-08-13 10:54] LABS: HEMOGLOBIN A1C 7.8 % (4.3-6.0)
[2017-08-13 11:00] VITALS: BP_SYST 166; BP_SYST 180; BP_DIAS 77; PULSE 67; RESP 20; TEMP 97.6; O2SAT 95
[2017-08-13] MEDS: MAGNESIUM OXIDE 400 MG TAB PO SCH (11:34)
--- NOTE | 2017-08-13 12:49 | RADRPT ---
EXAM DATE/TIME: 08/13/2017 12:29 [facility] COMPARISON: CHEST SINGLE AP, February 13, 2014, 13:53. INDICATIONS : Weakness. MEDICAL HISTORY : Cerebrovascular disease. Cardiovascular disease Hypertension.Diabetes.Anticoagulant therapy SURGICAL HISTORY : CABG Appendectomy.Cholecystectomy.Renal bypass. ENCOUNTER: Subsequent ACUITY: 2 days PAIN SCORE: 0/10 LOCATION: Bilateral chest FINDINGS: Status post median sternotomy for bypass grafting procedure. There is chronic appearing scarring in b oth lungs left greater than right with no focal consolidation or effusion. The heart size is at the u pper limits of normal. There is no perihilar edema. The bony thorax is otherwise intact. CONCLUSION: 1. Chronic appearing scarring in both lungs. 2. Status post median sternotomy with no evidence of pulmonary edema. Ulysses Blanton MD on August 13, 2017 at 12:46 Board Certified Radiologist. This report was verified electronically.
[2017-08-13] MEDS ORDERED: LORazepam 2 MG/ML VIAL IV PUSH ONE (14:15)
[2017-08-13 15:00] VITALS: BP_SYST 153; BP_SYST 190; BP_DIAS 70; BP_DIAS 76; PULSE 64; RESP 20; TEMP 96.7; O2SAT 95
[2017-08-13] MEDS ORDERED: GADODIAMIDE PF 287 MG/ML 20 ML VIAL (for RAD MRI) IVCONTRAST ONE (15:49)
--- NOTE | 2017-08-13 16:48 | RADRPT ---
EXAM DATE/TIME: 08/13/2017 14:40 [facility] COMPARISON: No previous studies available for comparison. INDICATIONS : Myelopathy. MEDICAL HISTORY : None. SURGICAL HISTORY : Cholecystectomy. CABG Kidney bypass. ENCOUNTER: Initial ACUITY: 1 day PAIN SCORE: 0/10 LOCATION: Head. TECHNIQUE: Multiplanar, multisequence MRI examination of the cervical spine was performed. FINDINGS: The overall alignment of the cervical vertebral bodies maintain. Moderate posterior osteophytes pres ent C4-C7 stopped no compression deformities are signal abnormalities within the marrow of the cervic al vertebral. The visualized posterior fossa structures are intact. There is loss of CSF ventral to cord in C4-C7. No focal signal abnormalities within the substance of the cervical cord. C2-C3: The thecal sac has a normal configuration. There is no evidence of disc herniation or spinal canal s tenosis. The neural foramina are patent bilaterally. C3-C4: The thecal sac is normal in configuration. No significant epidural compression seen. Mild neural fo raminal narrowing. C4-C5: Asymmetric uncovertebral joint hypertrophy causes indentation on the right ventral margin of the thec al sac. There is also moderate severity bilateral neural foraminal stenosis. No evidence of disc bu lge or protrusion. C5-C6: Moderate spinal stenosis due to central protrusion of the disc and endplate hypertrophy. The neural foramina are moderately narrowed bilaterally. C6-C7: Broad-based disc/osteophyte complex causes focal indentation on the thecal sac. There is also modera te severity bilateral neural foraminal stenosis, right greater than left. C7-T1: The thecal sac has a normal configuration. There is no evidence of disc herniation or spinal canal s tenosis. The neural foramina are patent bilaterally. CONCLUSION: Severity spinal stenosis at the C5-6 and C6-7 levels due to combination of disc/osteophyte complexes and disc protrusions. There is also multilevel bony neural foraminal stenosis. Maynor Louis MD on August 13, 2017 at 16:39 Board Certified Radiologist. This report was verified electronically.
--- NOTE | 2017-08-13 17:13 | RADRPT ---
EXAM DATE/TIME: 08/13/2017 14:40 [facility] COMPARISON: CT BRAIN W/O CONTRAST, August 12, 2017, 18:50. INDICATIONS : CVA. CONTRAST: 20 cc Omniscan (gadodiamide) IV MEDICAL HISTORY : None. SURGICAL HISTORY : CABG Cholecystectomy. Kidney bypass. ENCOUNTER: Initial ACUITY: 1 day PAIN SCORE: 0/10 LOCATION: Head. TECHNIQUE: Multiplanar, multisequence MRI of the brain was performed both prior to and following the administrat ion of paramagnetic contrast. FINDINGS: CEREBRUM: The ventricles are normal in size. There is an old infarction in the right parasagittal occipital lo be. Lacunar infarct in the right canela radiata. No evidence of acute blood products or acute infar ction. No extra-axial fluid or blood collections. WHITE MATTER: Mild T2 prolongation in the periventricular white matter. POSTERIOR FOSSA: The cerebellum is intact. Lacunar infarct in the right central marina. The 4th ventricle is midline. The cerebellopontine angle is unremarkable. The cerebellar tonsils are normal in position. DIFFUSION IMAGING: No focal areas of restricted diffusion are seen. No evidence of acute infarction. EXTRACRANIAL: The visualized portions of the orbits and paranasal sinuses are unremarkable. POST-CONTRAST: No abnormal areas of parenchymal or dural enhancement. No evidence of blood-brain barrier breakdown. CONCLUSION: 1. No acute findings in the brain. 2. Old right occipital infarction, right canela radiata lacunar infarct, and small lacunar infarct in the central marina. Maynor Louis MD on August 13, 2017 at 16:46 Board Certified Radiologist. This report was verified electronically.
--- NOTE | 2017-08-13 17:46 | RADRPT ---
EXAM DATE/TIME: 08/13/2017 14:40 [facility] COMPARISON: No previous studies available for comparison. INDICATIONS : CVA. MEDICAL HISTORY : None. SURGICAL HISTORY : CABG Cholecystectomy. Kidney bypass. ENCOUNTER: Initial ACUITY: 1 day PAIN SCORE: 0/10 LOCATION: Head. Please note a normal MRA of the brain does not entirely exclude the possibility of a small aneurysm, nor the possibility of distal intracranial vessel disease. TECHNIQUE: 3D time of flight MRA was performed. Source images, multiplanar STS MIP, and 3D volume MIP reconstru ctions were reviewed. FINDINGS: Anterior circulation: Distal intracranial internal carotid arteries are patent with flow extending to the middle and anteri or cerebral arteries. There is no evidence for aneurysm, vessel truncation or stenosis, and no eviden ce for vascular malformation. Posterior circulation: Symmetric distal vertebral arteries with flow extending to basilar artery. origin of the left [employer]. There is no evidence for aneurysm, vessel truncation or stenosis, and no evidence for vascular m alformation. CONCLUSION: 1. Unremarkable MRA examination of the brain. Rowdy Gonzalez MD on August 13, 2017 at 17:37 Board Certified Radiologist. This report was verified electronically.
--- NOTE | 2017-08-13 17:49 | RADRPT ---
EXAM DATE/TIME: 08/13/2017 14:40 [facility] COMPARISON: No previous studies available for comparison. INDICATIONS : TIA. CONTRAST: 20 cc Omniscan (gadodiamide) IV MEDICAL HISTORY : None. SURGICAL HISTORY : CABG Cholecystectomy. Kidney bypass. ENCOUNTER: Initial ACUITY: 1 day PAIN SCORE: 0/10 LOCATION: Head. Percent stenosis is calculated using the diameter of the stenotic region over the diameter of the nor mal distal internal carotid artery. TECHNIQUE: Bolus infused MRA of the extracranial circulation was performed using a neurovascular coil. Post pro cessing was performed including rotating subvolume maximum intensity projections of each carotid calvin ry, rotating full volume maximum intensity projections of both carotid arteries, sagittal and coronal sliding thin slab reformations of each carotid artery, and left oblique sliding thin slab reformatio n through the aortic arch to include the origin of the arch branch vessels. FINDINGS: Examination is limited by patient body habitus. AORTIC ARCH: There is a three vessel origin of the great vessels from the aorta. No evidence of ostial narrowing. RIGHT CAROTID: The common carotid artery is intact. The carotid bulb has a normal configuration without significant stenosis. The internal carotid artery is intact without significant stenosis. The external carotid artery is intact. LEFT CAROTID: The common carotid artery is intact. The carotid bulb has a normal configuration without significant stenosis. The internal carotid artery is intact without significant stenosis. The external carotid artery is intact. VERTEBRALS: The vertebral arteries have a symmetric diameter. No gross stenotic lesions are seen although verteb ral artery origins are obscured. CONCLUSION: 1. Limited examination due to patient's body habitus. 2. No evidence for significant flow limiting stenosis in the carotid and vertebral arteries with limi ann marie evaluation of the vertebral artery origins. Consider CTA examination if there is continued clinic al concern. Rowdy Gonzalez MD on August 13, 2017 at 17:44 Board Certified Radiologist. This report was verified electronically.
--- NOTE | 2017-08-13 19:26 | MG ---
cc: Mansoor Ledesma MD EEG NUMBER: [id number] Change in mental status, old right stroke, right occipital lobe stroke, old. A symmetric 12 Hz, 50 microvolt posterior and diffuse rhythm is seen. Recording overall synchronous and symmetric. I do not see any right occipital lobe abnormalities, nor any epileptiform or seizure activity. Hyperventilation is not performed. EKG artifact is seen. Occasional theta slowing is seen diffusely. Photic stimulation has been performed without significant posterior driving. IMPRESSION: A normal awake electroencephalogram. No evidence for a focal or diffuse abnormality. MD DESTINY Lu/TIN , 07:14 PM , 07:25 PM
[2017-08-13 20:00] VITALS: BP_SYST 132; BP_SYST 143; BP_DIAS 61; BP_DIAS 62; PULSE 66; PULSE 70; PULSE 71; RESP 20; TEMP 98.1; O2SAT 94
--- NOTE | 2017-08-13 20:33 | EKG ---
Date Performed: 08/13/2017 Time Performed: 10:24:08 PTAGE: 72 years EKG: Sinus rhythm WITH FIRST DEGREE AV BLOCK NONSPECIFIC T-WAVE ABNORMALITY ABNORMAL ECG PREVIOUS TRACING : 08/12/2017 18.33 Since the previous tracing, no significant change noted DOCTOR: Dirk Aldrich Interpretating Date/Time 08/13/2017 20:33:39
--- NOTE | 2017-08-13 21:13 | EKG ---
Date Performed: 08/12/2017 Time Performed: 18:33:28 PTAGE: 72 years EKG: Sinus rhythm NONSPECIFIC T-WAVE ABNORMALITY BORDERLINE ECG INTERPRETATION BASED ON A DEFAULT AGE OF 38 YEARS NO PREVIOUS TRACING DOCTOR: Dirk Aldrich Interpretating Date/Time 08/13/2017 21:12:23
[2017-08-14] VITALS: BP_SYST 159; BP_SYST 160; BP_DIAS 67; BP_DIAS 74; PULSE 63; PULSE 66; RESP 20; TEMP 98.1; O2SAT 96
[2017-08-14] MEDS: LEVOTHYROXINE SODIUM 25 MCG TAB PO SCH (06:42)
[2017-08-14 08:00] VITALS: BP_SYST 147; BP_SYST 162; BP_SYST 179; BP_DIAS 67; BP_DIAS 89; BP_DIAS 91; PULSE 66; RESP 16; TEMP 97.3; O2SAT 98
[2017-08-14] MEDS: METOPROLOL TARTRATE 50 MG TAB PO SCH ×2 (08:07→20:11)
[2017-08-14] MEDS: ASPIRIN 81 MG CHEW TAB CHEW SCH (08:07)
[2017-08-14] MEDS: CLOPIDOGREL 75 MG TAB PO SCH (08:07)
[2017-08-14] MEDS: LOSARTAN 50 MG TAB PO SCH (08:07)
[2017-08-14] MEDS: ESCITALOPRAM OXALATE 20 MG TAB PO SCH (08:07)
[2017-08-14] MEDS: SODIUM CHLOR 0.9% 1000 ML INJ 1,000 ML IV SCH (08:08)
[2017-08-14] MEDS: DOCUSATE SODIUM 50 MG/SENNA 8.6 MG TAB PO SCH ×2 (08:08→20:11)
[2017-08-14] MEDS: INSULIN ASPART SUPPLEMENTAL SCALE SQ SCH ×4 (08:08→20:18)
[2017-08-14] MEDS: SODIUM CHLORIDE 0.9% FLUSH 10 ML FLUSH IV FLUSH SCH ×2 (08:09→20:11)
--- NOTE | 2017-08-14 09:30 | MB ---
cc: Mansoor Ledesma MD DATE: 08/12/2017 HISTORY OF PRESENT ILLNESS: This is a 72-year-old right-handed woman with hypertension, insulin-dependent diabetes, hypercholesterolemia, CABG, renal artery stenosis, hypothyroidism, left Hernandez's palsy, who has been followed with Dr. Corrales. She has had gait problems for over 10 years, always been a little clumsy and with left facial droop, presumably after Hernandez's palsy. She has been falling in the last 2 months, about 3 times, and then she has not been sleeping well recently at night, been up a lot at night, sleeping more during the day, increased confusion. No hallucinations. When she went into the bathroom the other evening and the nightlight was not on and she could not figure out where she was in the bathroom and wound up coming into the hospital. Her has noted for about a year, her memory is not quite what it was in the past. She does follow Dr. Corrales outpatient, although she is not sure exactly why she sees Dr. Corrales. At one time, she had some double vision, may have had a brainstem infarct. PAST MEDICAL HISTORY: She last saw Neurology in 2013, Dr. Gaytan. She was having chest pain at that time. She needed neuro clearance for bypass. She was on Plavix at that time. He had cleared her for surgery. She saw Dr. Corrales in 2013, could not get her words out for about 30 minutes. He was on a baby aspirin then. MRI showed a small lacunar infarct, left basal ganglia, acute. Carotid ultrasound was negative and put her on Plavix. REVIEW OF SYSTEMS: According to her and her , there is no history of known history of atrial fibrillation, but hepatic or pulmonary disease, lupus, ulcer, cancer, seizure. Denies any vertigo. SOCIAL HISTORY: Nonsmoker, drinker, lives with her . FAMILY HISTORY: Positive for cancer in mother and cancer in sister. Negative for seizure, stroke. CURRENT MEDICATIONS: She is on Plavix and aspirin at home. ALLERGIES: SHE IS ALLERGIC TO ATORVASTATIN AND METFORMIN. MEDICATIONS AT HOME, SHE IS ON: Fish oil, metformin, Lexapro 20 mg a day, citalopram, vitamin D, vitamin B12, 81 of aspirin, Synthroid, Elavil 50 at bedtime, metoprolol, Plavix, Cozaar, magnesium. PHYSICAL EXAMINATION: VITAL SIGNS: Afebrile, pulse 64, respiratory rate 21, blood pressure 53/70. No standing blood pressures have been checked. CARDIOVASCULAR: There were no carotid bruits. Heart was regular rhythm. I did not detect a murmur. NEUROLOGIC: Pupils are equal. Visual garcia are full. Extraocular movements intact, without nystagmus. Face has a left facial droop, although she has normal strength in her frontalis and eye closure, more of a lower facial droop. Tongue was midline. There was no drift. She had normal strength in her lower extremities bilaterally. Fast finger movements are symmetric and normal. There is 1 beat of asterixis on the left hand only. DTRs are 2+ symmetric at the knees. Toes are downgoing bilaterally. There is no clonus. Tone was normal throughout. She is not ataxic on [id number], but seemed to point off in the distance instead of to my finger one time, and she has some mild ataxia on [id number] on the left. GAIT: She favors the left lower extremity, seems to walk with a bit of a shuffle. LABORATORY DATA: CBC is normal. Sedimentation rate was normal in 2014. RPR has been nonreactive. Urine drug screen was negative. UA here was negative except for 1000 glucose. Basic metabolic profile was normal. LFTs normal. Albumin 3. B12, folate, TSH all normal. ABG in 2014 normal. IMAGING: MRI of the brain shows old white matter infarct and old right occipital lobe cortically based infarct. There is also a small punctate area in the brainstem. MRA of the neck and [place] of [place] preliminary are negative. MRI of the cervical spine shows multiple multilevel, moderately severe spinal stenosis, but no major cord compression. ECHOCARDIOGRAM: Shows sinus rhythm. IMPRESSION AND PLAN: 1. Unsteady gait, some favoring to the left, some mild ataxia on the left. 2. Old right infarcts. These were not identified by the report, although I cannot look at the films in October of 2013. Whether they happened at the time of the bypass or not is unclear. She does follow with Dr. Monae, Cardiology, and with the multiple strokes, she should at least have a 30-day monitor. She is to work with physical therapy. Check a standing blood pressure. Otherwise, this appears to be nothing new. I would stop the Elavil as that can affect her memory and she probably had some circadian rhythm upset. Try to get her to sleep well at night and stay awake all day and she can follow up with Dr. Corrales as an outpatient. She may need to go to rehab, just to improve her gait, but there is no new stroke here today and no evidence for myelopathy despite the MRI findings on the cervical spine. I note her Hallpike maneuver today was negative bilaterally. Also, an echo in 2013 had a normal ejection fraction. MD DESTINY Lu/YOUSIF , 06:20 PM , 06:51 PM
--- NOTE | 2017-08-14 10:12 | HHI.PR ---
Subjective Remarks Patient seen and evaluated today in follow-up for weakness with accelerated hypertension. Metabolic encephalopathy is improved. Discharge planning is discussed with patient likely with home health care Objective Vitals Vital Signs Date Time Temp Pulse Resp B/P (MAP) Pulse Ox O2 Delivery O2 Flow Rate FiO2 08/14/17 08:00 97.3 66 16 179/89 (119) 98 162/67 (98) 147/91 (109) 08/14/17 00:00 66 08/14/17 00:00 98.1 63 20 160/67 (98) 96 159/74 (102) 08/13/17 20:00 71 08/13/17 20:00 70 132/61 (84) 08/13/17 20:00 98.1 66 20 143/62 (89) 94 08/13/17 15:00 96.7 64 20 153/70 (97) 95 190/76 (114) 08/13/17 11:00 97.6 67 20 180/77 (111) 95 166/77 (106) I/O 08/13/17 08/13/17 08/13/17 08/14/17 08/14/17 08/14/17 07:00 15:00 23:00 07:00 15:00 23:00 Intake Total 1248 ml 1000 ml 240 ml Balance 1248 ml 1000 ml 240 ml Intake Oral 500 ml 240 ml IV Total 748 ml 1000 ml # Voids 1 2 # Bowel Movements 0 0 Result Diagram: 08/13/17 0500 08/13/17 0500 Imaging Last Impressions Cervical Spine MRI 08/13/1736 Signed Impressions: Service Date/Time: Sunday, August 13, 2017 14:40 - CONCLUSION: Severity spinal stenosis at the C5-6 and C6-7 levels due to combination of disc/osteophyte complexes and disc protrusions. There is also multilevel bony neural foraminal stenosis. Maynor Louis MD Brain MRI 08/13/17 0736 Signed Impressions: Service Date/Time: Sunday, August 13, 2017 14:40 - CONCLUSION: 1. No acute findings in the brain. 2. Old right occipital infarction, right canela radiata lacunar infarct, and small lacunar infarct in the central [place]. Maynor Louis MD Neck Magnetic Resonance Angiography 08/13/17 0000 Signed Impressions: Service Date/Time: Sunday, August 13, 2017 14:40 - CONCLUSION: 1. Limited examination due to patient's body habitus. 2. No evidence for significant flow limiting stenosis in the carotid and vertebral arteries with limited evaluation of the vertebral artery origins. Consider CTA examination if there is continued clinical concern. Rowdy Gonzalez MD Head Magnetic Resonance Angiography 08/13/17 0000 Signed Impressions: Service Date/Time: Sunday, August 13, 2017 14:40 - CONCLUSION: 1. Unremarkable MRA examination of the brain. Rowdy Gonzalez MD Chest X-Ray 08/13/17 0000 Signed Impressions: Service Date/Time: Sunday, August 13, 2017 12:29 - CONCLUSION: 1. Chronic appearing scarring in both lungs. 2. Status post median sternotomy with no evidence of pulmonary edema. Ulysses Blanton MD Head CT 08/12/17 1823 Signed Impressions: Service Date/Time: Saturday, August 12, 2017 18:50 - CONCLUSION: 1. Senescent changes with old right basal ganglia lacunar and focal right posterior parietal infarcts. 2. No acute intracranial abnormality. Rowdy Gonzalez MD Objective Remarks GENERAL: This is a well-nourished, well-developed patient, in no apparent distress. CARDIOVASCULAR: Regular rate and rhythm without murmurs, gallops, or rubs. RESPIRATORY: Clear to auscultation. Breath sounds equal bilaterally. No wheezes , rales, or rhonchi. GASTROINTESTINAL: Abdomen soft, non-tender, nondistended. Normal active bowel sounds MUSCULOSKELETAL: Extremities without clubbing, cyanosis, or edema. NEURO: Alert & Oriented x4 to person, place, time, situation. Moves all ext x4 A/P Problem List: (1) Weakness ICD Code: R53.1 - Weakness Status: Acute Plan: Continue with rehab efforts OT consult pending Blood pressure improved Neurology consult appreciated Imaging unremarkable acutely other than chronic stenosis (2) Accelerated hypertension ICD Code: I10 - Accelerated hypertension Status: Acute Plan: Improved, continue with current management radha rosas (3) Diabetes ICD Code: E11.9 - Diabetes Status: Chronic Plan: Improved blood sugars Hemoglobin A1c 7.8 Continue with outpatient management with Invokana and insulin Discharge Planning Likely with home health care 1-2 days Marleny Baker MD August 14, 2017 10:12
[2017-08-14] MEDS ORDERED: CANAGLIFLOZIN METFORMIN PO SCH (10:15)
[2017-08-14] MEDS: MAGNESIUM OXIDE 400 MG TAB PO SCH (11:05)
[2017-08-14 12:00] VITALS: BP_SYST 163; BP_SYST 189; BP_SYST 197; BP_DIAS 88; BP_DIAS 91; BP_DIAS 93; PULSE 63; RESP 17; TEMP 96.6; O2SAT 96
[2017-08-14 13:41] VITALS: PULSE 67
[2017-08-14 16:00] VITALS: BP_SYST 145; BP_SYST 149; BP_SYST 155; BP_DIAS 72; BP_DIAS 76; BP_DIAS 80; PULSE 67; RESP 17; TEMP 97.6; O2SAT 96
[2017-08-14 20:00] VITALS: BP 142/65; PULSE 66; RESP 18; TEMP 98.1; O2SAT 95
[2017-08-15] VITALS: BP 176/72; PULSE 60; RESP 18; TEMP 97.4; O2SAT 94
[2017-08-15 04:00] VITALS: BP 167/70; PULSE 67; RESP 18; TEMP 96.9; O2SAT 95
[2017-08-15] MEDS: LEVOTHYROXINE SODIUM 25 MCG TAB PO SCH (06:20)
[2017-08-15 08:00] VITALS: BP 126/80; PULSE 64; RESP 19; TEMP 97.8; O2SAT 95
[2017-08-15] MEDS: ASPIRIN 81 MG CHEW TAB CHEW SCH (08:31)
[2017-08-15] MEDS: SODIUM CHLORIDE 0.9% FLUSH 10 ML FLUSH IV FLUSH SCH ×2 (08:31→21:33)
[2017-08-15] MEDS: INSULIN ASPART SUPPLEMENTAL SCALE SQ SCH ×4 (08:31→21:40)
[2017-08-15] MEDS: METOPROLOL TARTRATE 50 MG TAB PO SCH ×2 (08:31→21:33)
[2017-08-15] MEDS: ESCITALOPRAM OXALATE 20 MG TAB PO SCH (08:31)
[2017-08-15] MEDS: CLOPIDOGREL 75 MG TAB PO SCH (08:32)
[2017-08-15] MEDS: DOCUSATE SODIUM 50 MG/SENNA 8.6 MG TAB PO SCH ×2 (08:32→21:33)
[2017-08-15] MEDS: LOSARTAN 50 MG TAB PO SCH (08:32)
[2017-08-15] MEDS ORDERED: INSULIN GLARGINE 100 UNIT SQ SCH (09:00)
[2017-08-15] MEDS: MAGNESIUM OXIDE 400 MG TAB PO SCH (11:02)
--- NOTE | 2017-08-15 11:29 | HHI.DCPOC ---
Discharge Care Plan Diagnosis: (1) Accelerated hypertension (2) Diabetes Goals to Promote Your Health * To prevent worsening of your condition and complications * To maintain your health at the optimal level Directions to Meet Your Goals Take your medications as prescribed Follow your dietary instruction Follow activity as directed Keep your appointments as scheduled Take your immunizations and boosters as scheduled If your symptoms worsen call your PCP, if no PCP go to Urgent Care Center or Emergency Room Smoking is Dangerous to Your Health. Avoid second hand smoke Call the 24-hour hour crisis hotline for domestic abuse at Marleny Baker MD August 15, 2017 11:29
--- NOTE | 2017-08-15 11:31 | HHI.DS ---
Discharge Summary Admission Date Aug 12, 2017 at 19:55 Discharge Date: August 15, 2017 Admitting Diagnosis Ischemic CVA, falling (1) Weakness ICD Code: R53.1 - Weakness Status: Acute (2) Accelerated hypertension ICD Code: I10 - Accelerated hypertension Status: Acute (3) Diabetes ICD Code: E11.9 - Diabetes Status: Chronic Procedures none Brief History - From Admission This is a 72-year-old female who was brought in by her because of neuro deficits. For the past 2 days patient has been unsteady on her feet and forgetful. She was lost in her own bathroom one night stating she cannot find her way out. It was also dark. Patient has history of TIA and CVA. Patient seen in her room this morning with RN. is not available. She states she just wants to sleep. She is alert and oriented. She has good short term memory recall. States that for the past week she has been weak, unsteady on her feet and forgetful. She had multiple falls with apparent injuries no symptoms prior to the fall. She was also having generalized pain feeling like she has fibromyalgia. Since yesterday her pain has improved. She has chronic neuropathy involving her bilateral lower extremities. She also has pain in the right fifth toe after stubbing it against the chair. Patient denies any recent medication adjustment except when she was given clonidine for uncontrolled hypertension when she was in the ED 2 weeks ago. She also reports that her primary care physician gave her as needed blood pressure medication which she cannot recall. Denies fever, chills, dizziness, syncope, neck pain, numbness, focal weakness, chest pain, shortness of breath, abdominal pain, UTI symptoms, diarrhea and constipation. She reports of urinary incontinence. All other systems reviewed negative CBC/BMP: 08/13/17 0500 08/13/17 0500 Significant Findings Laboratory Tests Test 08/12/17 18:30 08/12/17 19:30 08/13/17 05:00 Eosinophils (%) (Auto) 5.1 % (0.0-4.0) 5.8 % (0.0-4.0) Basophils (%) (Auto) 2.9 % (0.0-2.0) Eosinophils # (Auto) 0.5 TH/MM3 (0-0.4) 0.5 TH/MM3 (0-0.4) Basophils # (Auto) 0.3 TH/MM3 (0-0.2) Random Glucose 153 MG/DL (74-106) 154 MG/DL (74-106) Estimat Glomerular Filtration Rate 55 ML/MIN (>89) 65 ML/MIN (>89) Urine Glucose (UA) 1000 OR GREATER mg/dL Total Protein 6.1 GM/DL (6.4-8.2) Albumin 3.0 GM/DL (3.4-5.0) Aspartate Amino Transf (AST/SGOT) 13 U/L (15-37) Hemoglobin A1c 7.8 % (4.3-6.0) Folate GREATER THAN 20.0 NG/ML Imaging Last Impressions Cervical Spine MRI 08/13/17735 Signed Impressions: Service Date/Time: Sunday, August 13, 2017 14:40 - CONCLUSION: Severity spinal stenosis at the C5-6 and C6-7 levels due to combination of disc/osteophyte complexes and disc protrusions. There is also multilevel bony neural foraminal stenosis. Maynor Louis MD Brain MRI 08/13/17735 Signed Impressions: Service Date/Time: Sunday, August 13, 2017 14:40 - CONCLUSION: 1. No acute findings in the brain. 2. Old right occipital infarction, right canela radiata lacunar infarct, and small lacunar infarct in the central [place]. Maynor Louis MD Neck Magnetic Resonance Angiography 08/13/17 Signed Impressions: Service Date/Time: Sunday, August 13, 2017 14:40 - CONCLUSION: 1. Limited examination due to patient's body habitus. 2. No evidence for significant flow limiting stenosis in the carotid and vertebral arteries with limited evaluation of the vertebral artery origins. Consider CTA examination if there is continued clinical concern. Rowdy Gonzalez MD Head Magnetic Resonance Angiography 08/13/17 Signed Impressions: Service Date/Time: Sunday, August 13, 2017 14:40 - CONCLUSION: 1. Unremarkable MRA examination of the brain. Rowdy Gonzalez MD Chest X-Ray 4/30/18 0000 Signed Impressions: Service Date/Time: Sunday, August 13, 2017 12:29 - CONCLUSION: 1. Chronic appearing scarring in both lungs. 2. Status post median sternotomy with no evidence of pulmonary edema. Ulysses Blanton MD Head CT 08/12/17 1823 Signed Impressions: Service Date/Time: Saturday, August 12, 2017 18:50 - CONCLUSION: 1. Senescent changes with old right basal ganglia lacunar and focal right posterior parietal infarcts. 2. No acute intracranial abnormality. Rowdy Gonzalez MD PE at Discharge GENERAL: This is a well-nourished, well-developed patient, in no apparent distress. CARDIOVASCULAR: Regular rate and rhythm without murmurs, gallops, or rubs. RESPIRATORY: Clear to auscultation. Breath sounds equal bilaterally. No wheezes , rales, or rhonchi. GASTROINTESTINAL: Abdomen soft, non-tender, nondistended. Normal active bowel sounds MUSCULOSKELETAL: Extremities without clubbing, cyanosis, or edema. NEURO: Alert & Oriented x4 to person, place, time, situation. Moves all ext x4 Pt update on day of discharge Patient doing much better. Alert oriented but still quite weak. Discharge plans to rehab discussed with patient and spouse and they are agreeable. Hospital Course Patient is a 72-year-old female who was seen and treated for weakness. She had experienced some neural deficits and no source was found other than accelerated hypertension and uncontrolled blood sugar. Her metabolic encephalopathy was likely due to hypertensive encephalopathy. Patient's blood pressure was improved with management and her blood sugar required adjustments in her insulin and Invokana. In fact the patient's metformin had been held and she was only on sliding scale requiring minimal injections per her scale. Her insulin invokana were therefore held. Patient's hemoglobin A1c was pretty reasonable. She was seen by occupational and physical therapist who recommended rehab for patient Pt Condition on Discharge: Good Discharge Disposition: Discharge to SNF Discharge Time: <= 30 minutes Discharge Instructions DIET: Follow Instructions for: Diabetic Diet Activities you can perform: Regular-No Restrictions New Medications: Insulin Aspart Inj (Novolog Inj) 100 Unit/Ml Inj 1 UNIT SQ ACHS SLIDING SCALE for Blood Sugar Management, #1 INJECTION per inpatient sliding scale Continued Medications: Aspirin (Aspirin) 81 Mg Chew 81 MG CHEW DAILY, TAB 0 Refills Cholecalciferol (Vitamin D) 2,000 Unit Cap 22 CAP PO DAILY, CAP Clopidogrel (Plavix) 75 Mg Tab 75 MG PO DAILY for Blood Clot Prevention, #30 TAB 0 Refills Cyanocobalamin (Vitamin B-12) 1,000 Mcg Subl 1000 MCG SL DAILY for Nutritional Supplement, TAB.SL 0 Refills Escitalopram (Lexapro) 20 Mg Tab 20 MG PO DAILY, #30 TAB 0 Refills Levothyroxine (Synthroid) 25 Mcg Tab 25 MCG PO DAILY for Thyroid, #30 TAB 0 Refills Losartan (Cozaar) 100 Mg Tab 100 MG PO DAILY for Blood Pressure Management, #30 TAB 0 Refills Magnesium Oxide (Magnesium Oxide) 400 Mg Tab 400 MG PO DAILY for Nutritional Supplement, TAB 0 Refills Metformin (Metformin) 500 Mg Tab 500 MG PO BIDPC for Blood Sugar Management, #60 TAB 0 Refills Metoprolol Tartrate (Metoprolol Tartrate) 50 Mg Tab 50 MG PO BID, #60 TAB 0 Refills [place]-3 Fatty Acids (Fish Oil) 340 Mg-1,000 Mg Cap 1000 PO DAILY Discontinued Medications: Amitriptyline (Amitriptyline) 50 Mg Tab 50 MG PO HS for Control Depression, #30 TAB 0 Refills Canagliflozin-Metformin (Invokamet) 150-1,000 Mg Tab 1 TAB PO DAILY for Blood Sugar Management, #60 TAB 0 Refills Take with meals. Avoid ethanol. Citalopram (Citalopram) 20 Mg Tab 20 MG PO DAILY for Control Depression, #30 TAB 0 Refills Insulin Glargine Inj (Lantus Solostar Pen Inj) 300 Unit/3 Ml Pen 100 UNITS SQ DAILY for Blood Sugar Management, PEN 0 Refills Marleny Baker MD August 15, 2017 11:31
[2017-08-15 12:00] VITALS: BP 144/64; PULSE 58; RESP 19; TEMP 97; O2SAT 95
[2017-08-15 16:00] VITALS: BP 145/93; PULSE 61; RESP 19; TEMP 97.2; O2SAT 95
[2017-08-15 20:00] VITALS: BP 161/80; PULSE 66; RESP 20; TEMP 98.8; O2SAT 96
[2017-08-16] VITALS: BP 145/65; PULSE 70; RESP 20; TEMP 98.5; O2SAT 96
[2017-08-16] MEDS: LEVOTHYROXINE SODIUM 25 MCG TAB PO SCH (06:00)
[2017-08-16] MEDS: INSULIN ASPART SUPPLEMENTAL SCALE SQ SCH ×3 (08:01→16:51)
[2017-08-16] MEDS: CLOPIDOGREL 75 MG TAB PO SCH (08:02)
[2017-08-16] MEDS: ESCITALOPRAM OXALATE 20 MG TAB PO SCH (08:02)
[2017-08-16] MEDS: DOCUSATE SODIUM 50 MG/SENNA 8.6 MG TAB PO SCH (08:02)
[2017-08-16] MEDS: ASPIRIN 81 MG CHEW TAB CHEW SCH (08:02)
[2017-08-16] MEDS: METOPROLOL TARTRATE 50 MG TAB PO SCH (08:02)
[2017-08-16] MEDS: SODIUM CHLORIDE 0.9% FLUSH 10 ML FLUSH IV FLUSH SCH (08:02)
[2017-08-16] MEDS: LOSARTAN 50 MG TAB PO SCH (08:02)
[2017-08-16 08:04] VITALS: BP 180/70; PULSE 62; RESP 20; TEMP 96.7; O2SAT 95
--- NOTE | 2017-08-16 11:03 | HHI.PR ---
Subjective Remarks Patient doing well. Awaiting discharge to rehab no new events Discussed with Suresh TAVARES Objective Vitals Vital Signs Date Time Temp Pulse Resp B/P (MAP) Pulse Ox O2 Delivery O2 Flow Rate FiO2 08/16/17 08:04 96.7 62 20 180/70 (106) 95 08/16/17 00:00 98.5 70 20 145/65 (91) 96 08/15/17 20:00 98.8 66 20 161/80 (107) 96 08/15/17 16:00 97.2 61 19 145/93 (110) 95 08/15/17 12:00 97.0 58 19 144/64 (90) 95 I/O 08/15/17 08/15/17 08/15/17 08/16/17 08/16/17 08/16/17 06:59 14:59 22:59 06:59 14:59 22:59 Intake Total 720 ml 120 ml 960 ml 120 ml Output Total 900 ml Balance 720 ml 120 ml 60 ml 120 ml Intake Oral 720 ml 120 ml 960 ml 120 ml Output Urine Total 900 ml # Voids 3 1 # Bowel Movements 1 1 Result Diagram: 08/13/17 0500 08/13/17 0500 Objective Remarks GENERAL: This is a well-nourished, well-developed patient, in no apparent distress. CARDIOVASCULAR: Regular rate and rhythm without murmurs, gallops, or rubs. RESPIRATORY: Clear to auscultation. Breath sounds equal bilaterally. No wheezes , rales, or rhonchi. GASTROINTESTINAL: Abdomen soft, non-tender, nondistended. Normal active bowel sounds MUSCULOSKELETAL: Extremities without clubbing, cyanosis, or edema. NEURO: Alert & Oriented x4 to person, place, time, situation. Moves all ext x4 Procedures none A/P Assessment and Plan Overall doing better. Still awaiting discharge planning Discharge Planning Likely with home health care 1-2 days Marleny Baker MD August 16, 2017 11:03
[2017-08-16] MEDS: MAGNESIUM OXIDE 400 MG TAB PO SCH (11:10)
[2017-08-16 12:00] VITALS: BP 185/88; PULSE 62; RESP 20; TEMP 97.1; O2SAT 96
--- NOTE | 2017-08-16 13:01 | HHI.FF ---
Face to Face Verification Diagnosis: (1) Accelerated hypertension (2) Diabetes (3) Weakness Physical Therapy Order: Evaluate and Treat Occupational Therapy Order: Evaluate and Treat Home Health Nursing Order: Medical education I have seen patient Nicole Velázquez on 08/16/17. My clinical findings support the need for the requested home health care services because: Ltd mobility - disease progression Patient has SOB Deconditioned w/ increased weakness I certify that my clinical findings support that this patient is homebound because: Impaired cognitive ability/safety Unsteady gait/balance Marleny Baker MD August 16, 2017 13:01
[2017-08-16 17:18] VITALS: BP 166/91; PULSE 64; RESP 20; TEMP 96.9; O2SAT 95
== END 2017-08-16 17:55 | disposition home or self-care (01) ==
LOC: PHED 18:18 → PHEDA 19:55 → PH3A 21:13
PROVIDERS: ADMIT Hospitalist; ATTEND Hospitalist
DX: R53.1 Weakness (principal); G93.41 Metabolic encephalopathy; S90.121A Contusion of right lesser toe(s) without damage to nail, initial encounter; R26.81 Unsteadiness on feet; G62.9 Polyneuropathy, unspecified; I25.10 Atherosclerotic heart disease of native coronary artery without angina pectoris; I10 Essential (primary) hypertension; I25.2 Old myocardial infarction; J44.9 Chronic obstructive pulmonary disease, unspecified; I44.0 Atrioventricular block, first degree; R94.31 Abnormal electrocardiogram [ECG] [EKG]; E03.9 Hypothyroidism, unspecified; G51.0 Bell's palsy; E78.00 Pure hypercholesterolemia, unspecified; I70.1 Atherosclerosis of renal artery; E11.9 Type 2 diabetes mellitus without complications; J45.909 Unspecified asthma, uncomplicated; H53.2 Diplopia; M48.02 Spinal stenosis, cervical region; M25.78 Osteophyte, vertebrae; M50.222 Other cervical disc displacement at C5-C6 level; R32 Unspecified urinary incontinence; R29.6 Repeated falls; Z86.73 Personal history of transient ischemic attack (TIA), and cerebral infarction without residual deficits; Z79.899 Other long term (current) drug therapy; Z79.84 Long term (current) use of oral hypoglycemic drugs; Z79.82 Long term (current) use of aspirin; Z79.01 Long term (current) use of anticoagulants; Z87.891 Personal history of nicotine dependence; Z95.1 Presence of aortocoronary bypass graft; W22.8XXA Striking against or struck by other objects, initial encounter
CPT/HCPCS: 70450; 70544; 70548; 70553; 71045; 72141; 80053; 80307; 81001; 82607; 82746; 82948; 83036; 84443; 85025; 85610; 85730; 93005; 95819; 96361; 96372; 96374; 97110; 97116; 97162; 97167; 99285; A9579; G0378; G8987; G8988; J1815; J2060; J7030; P9612

== ENCOUNTER 2017-10-02 15:06 | Emergency (ER) | payer OTHER ==
[~2017-10-02] VITALS: Ht 162.6 cm; Wt 78.5 kg
[~2017-10-02 15:06] MED LIST changes: -ACAR100T PO; -AMIT50TA3 PO; -CANA1TAB4 PO; -CITA20TA4 PO; -LANTINJ SQ; +METF500T PO
[2017-10-02 15:12] VITALS: BP 148/65; PULSE 62; RESP 18; TEMP 98.8; O2SAT 94
--- NOTE | 2017-10-02 15:40 | PD ---
HPI Chief Complaint: Skin Problem Time Seen by Provider: 15:38 Travel History International Travel<30 days: No Contact w/Intl Traveler<30days: No Traveled to known affect area: No History of Present Illness HPI Patient tried to make a follow-up appointment with her primary physician Dr. Shayne Banks, but when she did in the office just told her to come to the ER because she had too many problems. Patient presents with right heel inflammation, her poultry vaccinator has already looked at it, as given her a prescription for antibiotic ointment as well as oral tablets which she has not started to take yet. Patient also comes in complaining of her sciatica pain which is out of 5 out of 10 and she normally DOESN'T HAVE sciatica episodes very often. This is started over the last 2 days, the patient does not take any narcotics or any heavy pain medication for sciatica. According to the patient he just acts up every now and then. Patient also comes in complaining of a watery diarrhea, without any abdominal cramping or pain, no nausea or vomiting either. Patient rates the watery diarrhea over the last 2 weeks as a 8 out of 10 in intensity. When asked the patient stated that she has not brought this up to her primary care physician yet. States allergy to atorvastatin and metformin Past medical history significant for hypothyroidism, corrective lenses, denture use, hypertension, CABG 3, COPD, asthma, pneumonia, as GI disorder with a history of LAP-BAND 2004, appendectomy, cholecystectomy, diabetes, claustrophobia, renal bypass? PFSH Past Medical History Hx Anticoagulant Therapy: Yes Arthritis: No Asthma: Yes Autoimmune Disease: No Anxiety: No Depression: No Heart Rhythm Problems: No Cancer: No Cardiovascular Problems: Yes (htn on meds, triple bypass) High Cholesterol: No Chemotherapy: No Chest Pain: Yes Congestive Heart Failure: No COPD: Yes Cerebrovascular Accident: Yes Diabetes: Yes Diminished Hearing: No Endocrine: Yes GERD: No Genitourinary: Yes ("kidney bipass") Hiatal Hernia: No Hypertension: Yes Immune Disorder: No Implanted Vascular Access Dvce: No Kidney Stones: No Musculoskeletal: No Neurologic: No Psychiatric: No Reproductive: No Respiratory: Yes (copd) Migraines: No Pneumonia: Yes Radiation Therapy: No Renal Failure: No Seizures: No Sickle Cell Disease: No Sleep Apnea: No Thyroid Disease: Yes Ulcer: No Menopausal: Yes Past Surgical History Abdominal Surgery: Yes (Gall Bladder, ) AICD: No Appendectomy: Yes Arteriovenous Shunt: No Body Medical Devices: LAP BANDING Cardiac Surgery: Yes (CABG X 3) Cholecystectomy: Yes Ear Surgery: No Endocrine Surgery: No Eye Surgery: No Genitourinary Surgery: Yes (Renal Bypass not connected to DM) Gynecologic Surgery: No Insulin Pump: No Joint Replacement: No Neurologic Surgery: Yes Oral Surgery: No Pacemaker: No Thoracic Surgery: No Other Surgery: Yes (RENAL BYPASS) Social History Alcohol Use: No Tobacco Use: No (QUIT10/2013; USE E-CIG) Substance Use: No Allergies-Medications (Allergen,Severity, Reaction): Coded Allergies: atorvastatin (Verified Allergy, Unknown, 10/02/17) metformin (Verified Allergy, Unknown, 10/02/17) Reported Meds & Prescriptions Reported Meds & Active Scripts Active Reported Vitamin D-1000 (Cholecalciferol) 1,000 Unit Tab 2,000 Units PO DAILY Lantus Inj (Insulin Glargine) 1,000 Unit/10 Ml Vial 50 Units SQ HS Invokana (Canagliflozin) 100 Mg Tab 150 Mg PO DAILY Take before 1st meal of day. Trazodone (Trazodone HCl) 100 Mg Tablet 100 Mg PO HS Fish Oil ([place]-3 Fatty Acids) 340 Mg-1,000 Mg Cap 1,000 PO DAILY Lexapro (Escitalopram Oxalate) 20 Mg Tab 20 Mg PO DAILY Vitamin B-12 (Cyanocobalamin) 1,000 Mcg Subl 1,000 Mcg SL DAILY Aspirin 81 Mg Chew 81 Mg CHEW DAILY Synthroid (Levothyroxine Sodium) 25 Mcg Tab 25 Mcg PO DAILY Metoprolol Tartrate 50 Mg Tab 50 Mg PO BID Plavix (Clopidogrel Bisulfate) 75 Mg Tab 75 Mg PO DAILY Cozaar (Losartan Potassium) 100 Mg Tab 100 Mg PO DAILY Magnesium Oxide 400 Mg Tab 400 Mg PO DAILY Review of Systems General / Constitutional: No: Fever Eyes: No: Visual changes HENT: No: Headaches Cardiovascular: No: Chest Pain or Discomfort Respiratory: No: Shortness of Breath Gastrointestinal: Positive: Diarrhea Genitourinary: No: Dysuria Musculoskeletal: No: Pain Skin: Positive Rash (Not really a rash redness of her right heel) Neurologic: No: Weakness Psychiatric: No: Depression Endocrine: No: Polydipsia Hematologic/Lymphatic: No: Easy Bruising Physical Exam Narrative GENERAL: SKIN: Warm and dry. Right medial aspect of her heel shows an area approximately 5 cm in diameter that is erythematous, no opening, not actively draining, no fluctuance, and no induration. HEAD: Atraumatic. Normocephalic. EYES: Pupils equal and round. No scleral icterus. No injection or drainage. ENT: No nasal bleeding or discharge. Mucous membranes pink and moist. NECK: Trachea midline. No JVD. CARDIOVASCULAR: Regular rate and rhythm. RESPIRATORY: No accessory muscle use. Clear to auscultation. Breath sounds equal bilaterally. GASTROINTESTINAL: Abdomen soft, non-tender, nondistended. Hepatic and splenic margins not palpable. MUSCULOSKELETAL: Extremities without clubbing, cyanosis, or edema. No obvious deformities. Positive SLR bilaterally NEUROLOGICAL: Awake and alert. No obvious cranial nerve deficits. Motor grossly within normal limits. Five out of 5 muscle strength in the arms and legs. Normal speech. PSYCHIATRIC: Appropriate mood and affect; insight and judgment normal. Data Data Last Documented VS Vital Signs Date Time Temp Pulse Resp B/P (MAP) Pulse Ox O2 Delivery O2 Flow Rate FiO2 10/02/17 18:19 96 Room Air 10/02/17 18:17 59 16 10/02/17 15:12 98.8 Orders Orders Complete Blood Count With Diff (10/02/17 15:52) Comprehensive Metabolic Panel (10/02/17 15:52) Prothrombin Time / Inr (Pt) (10/02/17 15:52) Act Partial Throm Time (Ptt) (10/02/17 15:52) Lipase (10/02/17 15:52) Urinalysis - C+S If Indicated (10/02/17 15:52) Thyroid Stimulating Hormone (10/02/17 15:52) Enteric Path (Stool) (10/02/17 15:52) C Diff Toxin Pcr (10/02/17 15:52) Ct Abd/Pel W/O Iv Contrast (10/02/17 15:52) Iv Access Insert/Monitor (10/02/17 15:52) Ecg Monitoring (10/02/17 15:52) Oximetry (10/02/17 15:52) Giardia Antigen (Stool) (10/02/17 15:52) Stool Ova And Parasite Screen (10/02/17 15:52) Stool Wbc (Leukocytes) (10/02/17 15:52) Sodium Chlor 0.9% 1000 Ml Inj (Ns 1000 M (10/02/17 16:00) Morphine Inj (Morphine Inj) (10/02/17 18:15) Labs Laboratory Tests Test 10/02/17 16:00 White Blood Count 10.1 TH/MM3 Red Blood Count 4.92 MIL/MM3 Hemoglobin 14.6 GM/DL Hematocrit 43.2 % Mean Corpuscular Volume 87.8 FL Mean Corpuscular Hemoglobin 29.7 PG Mean Corpuscular Hemoglobin Concent 33.8 % Red Cell Distribution Width 12.9 % Platelet Count 201 TH/MM3 Mean Platelet Volume 7.9 FL Neutrophils (%) (Auto) 61.8 % Lymphocytes (%) (Auto) 27.5 % Monocytes (%) (Auto) 5.1 % Eosinophils (%) (Auto) 4.5 % Basophils (%) (Auto) 1.1 % Neutrophils # (Auto) 6.2 TH/MM3 Lymphocytes # (Auto) 2.8 TH/MM3 Monocytes # (Auto) 0.5 TH/MM3 Eosinophils # (Auto) 0.5 TH/MM3 Basophils # (Auto) 0.1 TH/MM3 CBC Comment DIFF FINAL Differential Comment Prothrombin Time 10.6 SEC Prothromb Time International Ratio 1.0 RATIO Activated Partial Thromboplast Time 24.5 SEC Blood Urea Nitrogen 17 MG/DL Creatinine 0.87 MG/DL Random Glucose 97 MG/DL Total Protein 7.0 GM/DL Albumin 3.5 GM/DL Calcium Level 8.9 MG/DL Alkaline Phosphatase 74 U/L Aspartate Amino Transf (AST/SGOT) 13 U/L Alanine Aminotransferase (ALT/SGPT) 21 U/L Total Bilirubin 0.4 MG/DL Sodium Level 137 MEQ/L Potassium Level 4.4 MEQ/L Chloride Level 104 MEQ/L Carbon Dioxide Level 27.9 MEQ/L Anion Gap 5 MEQ/L Estimat Glomerular Filtration Rate 64 ML/MIN Lipase 432 U/L Thyroid Stimulating Hormone 3rd Gen 0.341 uIU/ML [facility] Medical Decision Making Medical Screen Exam Complete: Yes Emergency Medical Condition: Yes Medical Record Reviewed: Yes Differential Diagnosis C. difficile colitis versus colitis versus diverticulitis versus cellulitis versus abscess versus lymphangitis versus dehydration versus pancreatitis versus hepatitis versus electrolyte abnormalities Narrative Course Patient CBC does not show any evidence of leukocytosis, no anemia, normal platelet count and no left shift Coagulation profile is within normal limits Electrolytes are all within normal limits with a normal kidney and liver functions. Patient's TSH screening test was low which is consistent with a hyper thyroid picture The patient's lipase was borderline elevated at 432 however the patient has no symptoms of abdominal pain, active vomiting or nausea, the only symptom the patient has is diarrhea. Not consistent with pancreatitis Diagnosis Primary Impression: Right mild medial cellulitis Additional Impressions: Episode of sciatica Diarrhea Patient Instructions: Cellulitis (ED), Diverticulosis (ED), Diverticulosis Diet (GEN), General Instructions Additional Instructions: Please take the doxycycline that your doctor prescribed for you Scripts Tramadol (Ultram) 50 Mg Tab 50 MG PO Q8H Y for PAIN, #12 TAB 0 Refills Prov: Lee Pardo MD 10/02/17 Metronidazole (Flagyl) 500 Mg Tab 500 MG PO TID for Infection for 7 Days, #21 TAB 0 Refills Prov: Lee Pardo MD 10/02/17 Disposition: 01 DISCHARGE HOME Condition: Stable Lee Pardo MD Oct 02, 2017 15:40
[2017-10-02] MEDS ORDERED: SODIUM CHLOR 0.9% 1000 ML INJ 1,000 ML IV ONE (16:00)
[2017-10-02] MEDS ORDERED: VITA1000 PO (16:08)
[2017-10-02] MEDS ORDERED: TRAZ100T10 PO (16:08)
[2017-10-02] MEDS ORDERED: CANA100T PO (16:08)
[2017-10-02] MEDS ORDERED: LANTUS2P SQ (16:08)
[2017-10-02 16:12] LABS: AUTOMATED NEUTROPHIL # 6.2 TH/MM3 (1.8-7.7); BASOPHIL # 0.1 TH/MM3 (0-0.2); BASOPHIL % 1.1 % (0.0-2.0); EOSINOPHIL # 0.5 TH/MM3 (0-0.4); EOSINOPHIL % 4.5 % (0.0-4.0); HEMATOCRIT 43.2 % (35.0-46.0); HEMOGLOBIN 14.6 GM/DL (11.6-15.3); LYMPH % 27.5 % (9.0-44.0); LYMPHOCYTE # 2.8 TH/MM3 (1.0-4.8); MEAN CELL VOLUME 87.8 FL (80.0-100.0); MEAN CORPUSCULAR HEMOGLOBIN 29.7 PG (27.0-34.0); MEAN CORPUSCULAR HGB CONC 33.8 % (32.0-36.0); MEAN PLATELET VOLUME 7.9 FL (7.0-11.0); MONO % 5.1 % (0.0-8.0); MONOCYTE # 0.5 TH/MM3 (0-0.9); NEUT % 61.8 % (16.0-70.0); PLATELET COUNT 201 TH/MM3 (150-450); RED BLOOD COUNT 4.92 MIL/MM3 (4.00-5.30); RED CELL DISTRIBUTION WIDTH 12.9 % (11.6-17.2); WHITE BLOOD COUNT 10.1 TH/MM3 (4.0-11.0)
[2017-10-02 16:20] LABS: CHLORIDE 104 MEQ/L (98-107); SODIUM (NA) 137 MEQ/L (136-145)
[2017-10-02 16:23] LABS: CALCIUM 8.9 MG/DL (8.5-10.1)
[2017-10-02 16:24] LABS: ALBUMIN 3.5 GM/DL (3.4-5.0); BICARBONATE 27.9 MEQ/L (21.0-32.0); BLOOD UREA NITROGEN 17 MG/DL (7-18); GLUCOSE,RANDOM 97 MG/DL (74-106)
[2017-10-02 16:25] LABS: PROTHROMBIN TIME - PATIENT 10.6 SEC (9.8-11.6)
[2017-10-02 16:26] LABS: ALT (GPT) 21 U/L (10-53)
[2017-10-02 16:27] LABS: AST (GOT) 13 U/L (15-37); CREATININE 0.87 MG/DL (0.50-1.00); GLOMERULAR FILTRATION RATE 64 ML/MIN (>89)
[2017-10-02 16:28] LABS: TOTAL BILIRUBIN ADULT 0.4 MG/DL (0.2-1.0)
[2017-10-02 16:29] LABS: ALKALINE PHOSPHATASE 74 U/L (45-117)
--- NOTE | 2017-10-02 17:04 | RADRPT ---
EXAM DATE: 10/02/2017 4:56 PM EDT AGE/SEX: 72 years / Female INDICATIONS: Lower abdominal pressure. CLINICAL DATA: This is the patient's initial encounter. Patient reports that signs and symptoms have been present for 1 month and indicates a pain score of 5/10. MEDICAL/SURGICAL HISTORY: Hypertension. Cardiovascular disease. Diabetes. CABG. Cholecystect jas. Hysterectomy. Renal bypass. RADIATION DOSE: 15.16 CTDI (mGy) COMPARISON: No prior exams available for comparison. TECHNIQUE: Multiple contiguous axial images were obtained through the abdomen. Images were obtained using multiple row detector helical technique. Using automated exposure control and adjustment of the mA and/or kV according to patient size, radiation dose was kept as low as reasonably achievable to o btain optimal diagnostic quality images. DICOM format image data is available electronically for rev iew and comparison. Lack of IV contrast limits the diagnosis for certain organ pathology. FINDINGS: Lower Lungs: There is some atelectasis versus scarring in the right lower lung. Mild scarring in the left lung base. Otherwise, The left lung bases grossly clear. Liver: The liver has a homogeneous density without space-occupying lesion. There is no dilation of th e biliary tree. Gallbladder surgically removed. Spleen: Homogeneous density without enlargement. Pancreas: Unremarkable without mass or calcification. Kidneys: Normal in size and shape. No evidence of mass or hydronephrosis. 3 mm stone upper pole left kidney not causing obstruction. Adrenal Glands: Unremarkable. Aorta: Atherosclerotic changes. No aneurysmal dilatation. Bowel/Mesentery: The bowel loops are grossly unremarkable. The cecum and sigmoid colon have a normal configuration. Scattered diverticulosis throughout the colon. No definite inflammatory changes. Ther e is a lap band device in place. No inflammatory changes. Abdominal Wall: Intact. Lateral band device port in the right mid anterior abdominal wall Retroperitoneum: No evidence of adenopathy in the retrocrural, para-aortic, or deep pelvic regions. Bladder: Contours are smooth. No evidence of stones. Reproductive Organs: The uterus is within normal limits for size. There is a 2.3 [address] right ovarian [address]. No free fluid. Inguinal: The inguinal region is unremarkable without evidence of adenopathy. Bony Structures: Bony degenerative changes. CONCLUSION: 1. 3 mm nonobstructing stone upper pole left kidney. 2. Scattered diverticulosis throughout the colon. No inflammatory changes. 3. 2.3 cm right ovarian cyst. 4. Lap band device in place. 5. Bibasilar scarring versus atelectasis. Electronically signed by: Matt Gonzalez MD 10/02/2017 5:02 PM EDT
[2017-10-02] MEDS ORDERED: MORPHINE SULFATE 2 MG/ML SYRINGE IV PUSH ONE (18:15)
[2017-10-02 18:17] VITALS: BP 152/74; PULSE 59; RESP 16; O2SAT 96
[2017-10-02 18:19] VITALS: O2SAT 96
[2017-10-02] MEDS ORDERED: METR-1 PO (19:03)
[2017-10-02] MEDS ORDERED: TRAM50 PO (19:04)
[2017-10-02 19:17] VITALS: BP 152/74
== END 2017-10-02 19:32 | disposition home or self-care (01) ==
LOC: PHED 15:06
DX: L03.115 Cellulitis of right lower limb (principal); M54.30 Sciatica, unspecified side; R19.7 Diarrhea, unspecified; I10 Essential (primary) hypertension; J44.9 Chronic obstructive pulmonary disease, unspecified; E11.9 Type 2 diabetes mellitus without complications; Z86.73 Personal history of transient ischemic attack (TIA), and cerebral infarction without residual deficits; Z95.1 Presence of aortocoronary bypass graft; Z79.01 Long term (current) use of anticoagulants; Z79.4 Long term (current) use of insulin
CPT/HCPCS: 74176; 80053; 83690; 84443; 85025; 85610; 85730; 96361; 96374; 99284; J2270; J7030